=== PATIENT | female | born 1950 | race Caucasian/White ===

== ENCOUNTER 2020-03-14 00:51 | Outpatient (CLI) | payer OTHER, SELFPAY ==
[2020-03-14 18:11] LABS: SARS-CoV-2 RNA PCR Negative
== END 2020-03-14 00:52 | disposition home or self-care (01) ==
LOC: ANHCOVIDDT 00:51
PROVIDERS: PCP Family Medicine; Visit Provider Internal Medicine Gastroenterology
DX: Z01.812 Encounter for preprocedural laboratory examination (principal); Z11.59 Encounter for screening for other viral diseases
CPT/HCPCS: 87635; C9803; U0003

== ENCOUNTER 2020-03-17 01:56 | Day surgery (SDC) | payer OTHER, SELFPAY ==
[2020-03-09 12:30] VITALS: BMI 36.3
[2020-03-17 12:07] VITALS: BP 148/110; PULSE 93; RESP 16; TEMP 37.2; O2SAT 100; BMI 34.1
[2020-03-17] MEDS: LACTATED RINGERS 1,000 ML 150 ML IV CONT (12:22)
--- NOTE | 2020-03-17 12:31 | WPDANESEPPF ---
Anes - Initial Pre Proc Eval Procedure: Operation Date: 03/17/20 13:15 Proposed Procedures p Esophagogastroduodenoscopy & Colonoscopy - Moreno Mike MD Date/Time: 03/17/20 12:31 Surgeon: Moreno Mike MD Pre Op Diagnosis: anemia, reflux Patient Data Age: 69 Gender: F Height: 5 ft Weight: 79.3 kg Last Vital Signs Temp 99.0 F 03/17/20 12:07 Pulse 93 03/17/20 12:07 Resp 16 03/17/20 12:07 BP 148/110 H 03/17/20 12:07 Pulse Ox 100 03/17/20 12:07 Allergies Allergy/AdvReac Type Severity Reaction Status Date / Time famotidine Allergy Unknown Hives Verified 03/17/20 12:05 Home Medications Medication Instructions Recorded Confirmed Type albuterol sulfate 90 mcg/actuation 2 inhalation INHALATION Q4-6H PRN 07/22/19 03/09/20 History breath activated powder inhaler aspirin 81 mg tablet,delayed 81 mg PO DAILY 07/22/19 03/09/20 History release fluticasone propionate 50 1 spray NASAL DAILY 07/22/19 03/09/20 History mcg/actuation nasal spray,suspension rosuvastatin 10 mg tablet 10 mg PO DAILY 07/22/19 03/09/20 History sertraline 100 mg tablet 100 mg PO DAILY 07/22/19 03/09/20 History umeclidinium 62.5 mcg-vilanterol 1 inhalation INHALATION DAILY 07/22/19 03/09/20 History 25 mcg/actuation powdr for inhalation cyanocobalamin (vitamin B-12) 5,000 mcg PO DAILY 01/24/20 03/09/20 History 5,000 mcg capsule pantoprazole 40 mg tablet,delayed 40 mg PO QAM #90 tablet 01/24/20 03/09/20 Rx release ferrous sulfate 325 mg (65 mg 325 mg PO DAILY #90 tablet 01/31/20 03/09/20 Rx iron) tablet peg 3350-electrolytes 236 240 ml PO Q10M #4000 ml 03/05/20 Rx gram-22.74 gram-6.74 gram-5.86 gram solution clopidogrel 75 mg PO DAILY 03/09/20 03/09/20 History Patient hx anesthesia problems: none Family hx anesthesia problems: none FORMERLY [facility] Past Medical History Medical History (Updated 02/10/20 @ 14:05 by Moreno Mike MD) Colon cancer screening COPD (chronic obstructive pulmonary disease) Dysphagia H/O: CVA (cerebrovascular accident) Microcytic anemia Nausea and vomiting in adult Osteoporosis Parkinsons disease Surgical History Surgical History H/O foot surgery History of hysterectomy with oophorectomy History of tonsillectomy Hx of appendectomy Social History Social History Smoking status: Former smoker Tobacco type: cigarettes Second hand tobacco smoke exposure: No Alcohol intake: never Substance use: never Substance use type: does not use 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 Gender identity (if verbalized by the patient): Female Spiritual care concerns: No Agree to blood products: Yes Anes - Eval Final PreProcedure Day of Procedure 03/17/20 12:31 Patient weight: overweight Heart: regular rate and rhythm Lungs: clear to auscultation Airway: Mallampati scale class II Neurological: alert and oriented Last oral intake: >/= 8 hours ASA classification: III Emergent: no Anesthetic plan: proceed Anesthesia type and monitoring: general GIVS and standard monitoring Informed Consent: The patient's anesthetic plan and its attendant risks and benefits were discussed with the patient/family/POA. Questions were solicited and answers provided to the satisfaction of the patient/family/POA.
--- NOTE | 2020-03-17 13:00 | PM.HPGS ---
History of Present Illness History of Present Illness Consent: Risks, benefits, and alternatives have been discussed and questions answered. Patient agrees to proceed with procedure. Chief complaint: anemia, reflux Narrative: Lauryn Sanchez is a 69 year old female here for screening colon and GERD but better with protonix Review of Systems Constitutional: Constitutional: Denies headache(s) and Denies weakness Eyes: Eyes: Denies blurry vision ENT: Reports Normal hearing present, Denies headache(s) and Denies neck pain Cardiovascular: Cardiovascular: Denies chest pain and Denies dyspnea Respiratory: Respiratory: Denies dyspnea Gastrointestinal: Gastrointestinal: Reports no additional gastrointestinal complaints Genitourinary: Genitourinary: Denies dysuria Musculoskeletal: Musculoskeletal: Denies neck pain Integumentary/Breasts: Skin/Breast: Denies dry skin Neurologic: Reports Normal hearing present, Denies headache(s) and Denies weakness Psychiatric: Psychiatric: Denies anxiety Endocrine: Endocrine: Denies change in body appearance Hematologic/Lymphatic: Hematologic/Lymphatic: Denies easy bleeding Allergic/Immunologic: Allergic/Immunologic: Denies urticaria PMFSH Past Medical History Medical History (Updated 02/10/20 @ 14:05 by Moreno Mike MD) Colon cancer screening COPD (chronic obstructive pulmonary disease) Dysphagia H/O: CVA (cerebrovascular accident) Microcytic anemia Nausea and vomiting in adult Osteoporosis Parkinsons disease Surgical History Surgical History H/O foot surgery History of hysterectomy with oophorectomy History of tonsillectomy Hx of appendectomy Social History Social History Smoking status: Former smoker Tobacco type: cigarettes Second hand tobacco smoke exposure: No Alcohol intake: never Substance use: never Substance use type: does not use 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 Gender identity (if verbalized by the patient): Female Spiritual care concerns: No Agree to blood products: Yes Meds Home Medications and Allergies Home Medications Medication Instructions Recorded Confirmed Type albuterol sulfate 90 mcg/actuation 2 inhalation INHALATION Q4-6H PRN 07/22/19 03/09/20 History breath activated powder inhaler aspirin 81 mg tablet,delayed 81 mg PO DAILY 07/22/19 03/09/20 History release fluticasone propionate 50 1 spray NASAL DAILY 07/22/19 03/09/20 History mcg/actuation nasal spray,suspension rosuvastatin 10 mg tablet 10 mg PO DAILY 07/22/19 03/09/20 History sertraline 100 mg tablet 100 mg PO DAILY 07/22/19 03/09/20 History umeclidinium 62.5 mcg-vilanterol 1 inhalation INHALATION DAILY 07/22/19 03/09/20 History 25 mcg/actuation powdr for inhalation cyanocobalamin (vitamin B-12) 5,000 mcg PO DAILY 01/24/20 03/09/20 History 5,000 mcg capsule pantoprazole 40 mg tablet,delayed 40 mg PO QAM #90 tablet 01/24/20 03/09/20 Rx release ferrous sulfate 325 mg (65 mg 325 mg PO DAILY #90 tablet 01/31/20 03/09/20 Rx iron) tablet peg 3350-electrolytes 236 240 ml PO Q10M #4000 ml 03/05/20 Rx gram-22.74 gram-6.74 gram-5.86 gram solution clopidogrel 75 mg PO DAILY 03/09/20 03/09/20 History Allergies Allergy/AdvReac Type Severity Reaction Status Date / Time famotidine Allergy Unknown Hives Verified 03/17/20 12:05 Vital Signs Vital Signs - 24 hr 03/17/20 12:07 Temperature 99.0 F Pulse Rate 93 Respiratory Rate 16 Blood Pressure 148/110 H Pulse Oximetry 100 Exam Const: General: comfortable and no acute distress HENMT: General nose exam: Normal nares present Eyes: General: appearance normal, both eyes and all related structures Neck: Neck: no JVD Resp: Auscultation: clear to auscultation bilaterally Cardio: Rate: regular rate Rhythm: regular rhythm GI
[2020-03-17 13:42] VITALS: BP 109/70; PULSE 60; RESP 16; O2SAT 98
[2020-03-17 13:52] VITALS: BP 134/81; PULSE 65; RESP 18; O2SAT 99
[2020-03-17 14:02] VITALS: BP 152/94; PULSE 67; RESP 19; O2SAT 99
== END 2020-03-17 14:30 | disposition home or self-care (01) ==
PROVIDERS: PCP Family Medicine; Visit Provider Internal Medicine Gastroenterology
PROC: 0DJ08ZZ Inspection of Upper Intestinal Tract, Via Natural or Artificial Opening Endoscopic (ICD-10-PCS; CPT 43235; principal; 2020-03-17 13:15)
DX: Z12.11 Encounter for screening for malignant neoplasm of colon (principal); D12.0 Benign neoplasm of cecum; K57.30 Diverticulosis of large intestine without perforation or abscess without bleeding; K21.0 Gastro-esophageal reflux disease with esophagitis; K22.10 Ulcer of esophagus without bleeding; K44.9 Diaphragmatic hernia without obstruction or gangrene; K31.7 Polyp of stomach and duodenum; D50.9 Iron deficiency anemia, unspecified; R11.0 Nausea; G20 Parkinson's disease; J44.9 Chronic obstructive pulmonary disease, unspecified; M81.0 Age-related osteoporosis without current pathological fracture; Z86.73 Personal history of transient ischemic attack (TIA), and cerebral infarction without residual deficits; Z79.02 Long term (current) use of antithrombotics/antiplatelets; Z79.82 Long term (current) use of aspirin; Z87.891 Personal history of nicotine dependence
CPT/HCPCS: 45380; 43239; 43251; 88305; J2704; J7120

== ENCOUNTER 2020-04-10 11:27 | Observation (INO) | payer OTHER, SELFPAY ==
[2020-04-10] VITALS (9 sets, daily range): BP systolic 137–183; BP diastolic 84–133; PULSE 85–97; RESP 16–24; TEMP 36.7–37.1; O2SAT 97–100; BMI 38.9
--- NOTE | ~2020-04-10 | XR_ITS ---
EXAMINATION: XR chest 1V portable DATE: 04/10/2020 12:17 INDICATION: Slurred speech. TECHNIQUE: A single frontal view of the chest was obtained. COMPARISON: Chest 2 views 02/04/2010 FINDINGS: There is mild atelectasis in left lower lung zone. No pleural effusion or pneumothorax. The heart size is normal. IMPRESSION: 1. Mild atelectasis in left lower lung zone. Reviewed, dictated and finalized at location A.
--- NOTE | ~2020-04-10 | CT_ITS ---
EXAMINATION: CT brain wo con DATE: 04/10/2020 11:43 INDICATION: Slurred speech. Neurologic symptoms. TECHNIQUE: Computed tomography (CT) of the head was performed without intravenous contrast. Sagittal and coronal reconstructions were performed. The mA was adjusted according to patient size. Iterative reconstruction technique was employed. The dose-length product was 605.33 mGy-cm. COMPARISON: head CT dated 08/25/2015 and brain MR dated 01/03/2019 FINDINGS: No acute intracranial hemorrhage, acute infarction or abnormal extra axial fluid collection. There is moderate scattered white matter hypoattenuation consistent with chronic small vessel ischemic diseas e. Ventricles are normal and symmetric. No mass/mass effect. Intracranial calcified cerebral atherosc lerosis is noted. The orbits, paranasal sinuses and mastoid air cells are normal. IMPRESSION: 1. No evident acute intracranial process. Dr. Parham discussed these findings with Dr. Strong at 7 :47 AM. 2. Moderate scattered white matter hypoattenuation consistent with chronic small vessel ischemic dise ase. Reviewed, dictated and finalized at location B. IMPRESSION: 1. No evident acute intracranial process. Dr. Parham discussed these findings with Dr. Strong at 7:47 AM. 2. Moderate scattered white matter hypoattenuation consistent with chronic smal l vessel ischemic disease.
--- NOTE | ~2020-04-10 | MR_ITS ---
EXAMINATION: MR brain/brain stem wo/w con DATE: 04/10/2020 18:05 INDICATION: Transient ischemic attack, slurred speech TECHNIQUE: Magnetic resonance imaging (MRI) of the brain and brainstem was performed without and with intravenous contrast. Sequences included sagittal and axial T1-weighted SE, axial diffusion-weighted FS EPI ASSET, axial T2*-weighted GRE, axial T2-weighted FLAIR Propeller, and axial T2-weighted Prope ller. Postcontrast axial and coronal T1-weighted SE was obtained. Apparent diffusion coefficient (ADC ) maps were created. COMPARISON: 01/03/2019 CONTRAST: Multihance, 16 cc FINDINGS: There are no areas of restricted diffusion to suggest acute infarction. There is no acute h emorrhage seen on the T2*, a hemosiderin sensitive sequence. The ventricles are normal in size. There are no extra-axial collections. There are scattered areas of nonspecific increased T2-weighted signa l intensity in the cerebral white matter. Flow voids are seen in the cerebral arteries on the T2-weig hted sequences consistent with their expected patency. Visualized orbits and soft tissues are unremar kable. There are no areas of abnormal enhancement on the post contrast images. IMPRESSION: 1. No acute intracranial abnormality. 2. Age related findings. Reviewed, dictated and finalized at location A.
--- NOTE | ~2020-04-10 | US_ITS ---
EXAMINATION: US carotid duplex BI DATE: 04/12/2020 09:13 INDICATION: Possible left internal carotid artery dissection TECHNIQUE: Grayscale, color Doppler, and pulsed Doppler images of the cervical carotid arteries were obtained. The degree of vessel stenosis is placed in one of the following categories: normal, <50%, 5 0-69%, >=70% but less than near-occlusion, near-occlusion, or total occlusion. Note that percent sten osis relative to normal distal artery lumen diameter is indirectly measured from velocity measurement s as described by Riley, et al. Radiology 2003; [id number]:[id number]. COMPARISON: None. FINDINGS: RIGHT: The right common carotid artery (CCA) peak systolic velocity (PSV) is 44 cm/s. The right internal car otid artery (ICA) PSV is 60 cm/s. The right ICA end-diastolic velocity (EDV) is 21 cm/s. The right IC A/CCA PSV ratio is 1.4. Grayscale and color Doppler images yield an estimate of minimal less than 50% diameter reduction from plaque in the ICA. The external carotid artery (ECA) PSV is 48 cm/s. There i s antegrade flow in the right vertebral artery. LEFT: There is tortuosity of the distal internal carotid artery on the left but no evidence of intima l flap or dissection The left CCA PSV is 51 cm/s. The left ICA PSV is 68 cm/s. The left ICA EDV is 20 cm/s. The left ICA/C CA PSV ratio is 1.3. Grayscale and color Doppler images yield an estimate of 0% diameter reduction fr om plaque in the ICA. The ECA PSV is 51 cm/s. There is antegrade flow in the left vertebral artery. IMPRESSION: 1. Minimal less than 50% stenosis in the right internal carotid artery. 2. No stenosis in the left internal carotid artery; tortuosity, no evidence of dissection. Reviewed, dictated and finalized at Location A. Reviewed, dictated and finalized at location A.
--- NOTE | ~2020-04-10 | CT_ITS ---
EXAMINATION: CTA BRAIN/CAROTID DATE: 04/10/2020 15:57 INDICATION: Transient ischemic episode. Slurred speech. TECHNIQUE: Computed tomographic angiography (CTA) of the head and neck was performed with 100 mL Omni paque-350 intravenous contrast. Multiplanar reconstructions and maximum intensity projection 3D-recon structions of the carotid arteries and of the intracranial arteries were created by the technologist on a separate workstation. Precontrast CT of the head was also obtained. Automated exposure control and iterative reconstruction technique were employed.The dose-length product was 846.61 mGy-cm. COMPARISON: None. FINDINGS: Carotid arteries: There is 0% stenosis of the right and left carotid bulbs relative to normal distal artery lumen diame ter (NASCET criteria). There is tortuosity to the more cephalad bilateral internal carotid arteries, more prominent on the left. Distal to the region of tortuosity on the left there is a small dissectio n flap in the more cephalad internal carotid artery. The artery at this location appears mildly dilat ed with irregularly varying caliber. There is also subtle irregular attenuating appearance to the lum en of the horizontally oriented segments of the more proximal left and right internal carotid arterie s. Appearance raises suspicion for fibromuscular dysplasia..Negligible atherosclerotic plaque at the normal caliber aortic arch. The visualized origins of the great vessels are normal. Intracranial arteries There is no hemodynamically significant stenosis in the vertebral, basilar and internal carotid arter ies. Vertebral arteries are codominant. There are no aneurysms identified. Both A1 and P1 segments a re patent. There is also patent anterior communicating artery. Cerebral arterial arborization appears symmetric. IMPRESSION: 1. Mild atherosclerotic plaque with 0% stenosis of the right carotid bulb relative to normal distal a rtery lumen diameter (NASCET criteria). 2. No atherosclerotic plaque or stenosis of the left carotid bulb. 3. 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 4. Normal cerebral CT angiogram. Reviewed, dictated and finalized at location B. IMPRESSION: 1. Mild atherosclerotic plaque with 0% stenosis of the right carotid bulb relat santiago to normal distal artery lumen diameter (NASCET criteria). 2. No atherosclerotic plaque or stenosis of the left carotid bulb. 3. 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 4. Normal cerebral CT angiogram.
--- NOTE | 2020-04-10 11:32 | ECG_ITS ---
Measurements Intervals [place] Rate: 95 P: 37 OR: 184 QRS: -11 QRSD: 86 T: 30 QT: 313 QTc: 395 Interpretive Statements SINUS RHYTHM LEFT VENTRICULAR HYPERTROPHY WITH ST-T CHANGE POOR R WAVE PROGRESSION, ANTERIOR LEADS BORDERLINE T WAVE ABNORMALITY- ANTERIOR LEADS BASELINE ARTIFACT- I, II, AVR BORDERLINE ECG Electronically Signed On 04-10-2020 11:55:16 CDT by Lonnie Urbina D.O.
[2020-04-10 12:10] LABS: Basophils Absolute Auto 0.1 K/mm3 (0.0-0.1); Basophils Percent Auto 1.2 % (0.2-1.2); Eosinophils Absolute Auto 0.1 K/mm3 (0-0.3); Eosinophils Percent Auto 1.6 % (0-4.4); Hematocrit 30.1 % (37.0-47.0); Hemoglobin 8.6 g/dL (12.0-15.0); Immature Granulocyte Absolute 0.02 K/mm3 (0.00-0.031); Immature Granulocyte Percent A 0.3 % (0-0.5); Lymphocytes Absolute Auto 1.57 K/mm3 (0.9-3.2); Lymphocytes Percent Auto 27.4 % (18.3-44.2); Mean Corpuscular HGB Conc 28.6 g/dl (32-36); Mean Corpuscular Hemoglobin 18.5 pg (26-34); Mean Corpuscular Volume 64.6 fl (80-100); Mean Platelet Volume 9.5 fl (7.4-10.4); Monocytes Absolute Auto 0.5 K/mm3 (0.1-0.6); Monocytes Percent Auto 8.6 % (2.6-8.5); Neutrophils Absolute Auto 3.5 K/mm3 (1.3-6.7); Neutrophils Percent Auto 60.9 % (45.5-73.1); Platelet Count Result 421 k/mm3 (150-375); Red Blood Count 4.66 M/mm3 (4.2-5.4); Red Cell Distribution Width 18.5 % (11.5-14.5); White Blood Count 5.7 K/mm3 (4.5-10.0)
[2020-04-10 12:16] LABS: INR 1.1; Prothrombin Time 14.2 Seconds (11.1-14.7)
[2020-04-10 12:17] LABS: Partial Thromboplastin Time 29.3 SECONDS (22.3-36.8)
[2020-04-10 12:19] LABS: Anion Gap 8 mmol/L (8-16); Blood Urea Nitrogen 14 mg/dL (7-17); Calcium 9.8 mg/dL (8.4-10.2); Carbon Dioxide 28 mmol/L (22-30); Chloride 101 mmol/L (98-107); Estimated CRCL calculation 64 ml/min; Estimated Glomerular Filt Rate > 60; Glucose 136 mg/dL (65-105); Potassium 3.5 mmol/L (3.4-5.0); Sodium 137 mmol/L (137-145)
[2020-04-10 12:31] LABS: Troponin I < 0.012 ng/mL (0.000-0.034)
[2020-04-10 12:36] LABS: Hypochromasia 2+ (NORMAL); Ovalocytes 2+ (NORMAL)
[2020-04-10 12:37] LABS: Platelet Estimate Adequate (Adequate)
[2020-04-10 13:06] LABS: Add Urine Microscopic? YES; Appearance Urine Clear (Clear); Bacteria Urine Trace /hpf; Bilirubin Urine Negative (Negative); Blood Urine Negative (Negative); Color Urine Yellow (Yellow); Glucose Urine UA Negative (Negative); Ketones Urine Negative (Negative); Leukocyte Esterase Ur 1+ LEU/UL (Negative); Mucus Urine Moderate /lpf; Nitrate Urine Negative (Negative); Protein Urine Negative (Negative); RBC Urine 0-2 /hpf (0-2); Specific Grav Ur 1.029 (1.001-1.035); Squamous Epithelial Cell Urine Occasional /hpf (Few); Urobilinogen Urine Negative mg/dL (<2.0); WBC Urine 0-3 /hpf
--- NOTE | 2020-04-10 13:09 | ED.NEUROSD ---
HPI - Neuro Symptoms/Deficit General Chief Complaint: Neuro Symptoms/Deficit Stated Complaint: neuro symptoms Time Seen by Provider: 04/10/20 12:14 Source: patient and family Mode of arrival: ambulatory History of Present Illness HPI Narrative: 69 years old white female presents with sudden onset of dizziness, left frontal headache, unable to talk, unable to walk straight started at 11 AM, resolved within 25 minutes. Currently patient is asymptomatic. History of CVA 10 years ago with residual left trouble every now and then, history of TIAs last one was 2 years ago, currently patient on Plavix, cannot take aspirin because of recent history of peptic ulcer disease in the last 4 weeks. Patient also have history of hyperlipidemia and COPD. Related Data Home Medications Medication Instructions Recorded Confirmed albuterol sulfate 90 mcg/actuation 2 inhalation INHALATION Q4-6H PRN 07/22/19 03/09/20 breath activated powder inhaler aspirin 81 mg tablet,delayed 81 mg PO DAILY 07/22/19 03/09/20 release fluticasone propionate 50 1 spray NASAL DAILY 07/22/19 03/09/20 mcg/actuation nasal spray,suspension rosuvastatin 10 mg tablet 10 mg PO DAILY 07/22/19 03/09/20 sertraline 100 mg tablet 100 mg PO DAILY 07/22/19 03/09/20 umeclidinium 62.5 mcg-vilanterol 1 inhalation INHALATION DAILY 07/22/19 03/09/20 25 mcg/actuation powdr for inhalation cyanocobalamin (vitamin B-12) 5,000 mcg PO DAILY 01/24/20 03/09/20 5,000 mcg capsule clopidogrel 75 mg PO DAILY 03/09/20 03/09/20 Allergies Allergy/AdvReac Type Severity Reaction Status Date / Time famotidine Allergy Unknown Hives Verified 04/10/20 11:48 Review of Systems Review of Systems: Narrative: CONSTITUTIONAL: Denies fever, chills, or sweats. EYES: Denies visual changes, redness, or discharge. ENT: Denies rhinorrhea, congestion, sore throat, or otalgia. CARDIOVASCULAR: Denies chest pain, palpitations, or edema. RESPIRATORY: Denies cough or dyspnea. GASTROINTESTINAL: Denies abdominal pain, nausea, vomiting, or diarrhea. GENITOURINARY: Denies dysuria or hematuria. SKIN: Denies rash or itching. MUSCULOSKELETAL: Denies back pain, joint pain, or myalgia. NEUROLOGIC: Denies headache, numbness, or weakness. PSYCHIATRIC: Denies anxiety or depression. FORMERLY [facility], [facility] Past Medical History Medical History Colon cancer screening COPD (chronic obstructive pulmonary disease) Dysphagia H/O: CVA (cerebrovascular accident) Microcytic anemia Nausea and vomiting in adult Osteoporosis Parkinsons disease Surgical History Surgical History H/O foot surgery History of hysterectomy with oophorectomy History of tonsillectomy Hx of appendectomy Family History Family History Mother Diabetes mellitus Hypertension Family history of cardiovascular disease Father Diabetes mellitus Family history of Parkinson's disease Family history of Alzheimer's disease Grandparent Family history of arthritis Social History Social History Smoking status: Former smoker Tobacco type: cigarettes Second hand tobacco smoke exposure: No Alcohol intake: never Substance use: never Substance use type: does not use 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
[2020-04-10] MEDS: LABETALOL HCL INJ 100 MG/20 ML VIAL 10 MG IV PUSH (15:05)
--- NOTE | 2020-04-10 18:20 | ADMGEN ---
This patient, Lauryn Sanchez, was admitted to 2 Medical Room 257-01. Patient/family oriented to hospital policies and general routines including ID bracelet, bed and alarms, visiting hours, pain management, procedures, bathroom and other care routines, personal items, smoking policy, room service/diet, and visiting hours. Valuables list has been completed. Information on how to activate the Rapid Response Team has been discussed. Patient/Family are encouraged to report perceived risks to care and to ask questions if they do not understand what they are told or what they should do.
--- NOTE | 2020-04-10 22:00 | PM.IMHP ---
H&P: HPI History of Present Illness Date/Time: 04/10/20 22:00 Chief complaint: Neuro symptoms. Narrative: Lauryn Sanchez is a very pleasant 69-year-old female with history of stroke without residual deficit, hypertension no longer medication, hyperlipidemia, GERD, and COPD who presented to the emergency department earlier today from home for evaluation of neuro symptoms. She was in her usual state of health when she woke this morning, went to visit family members, and came home. She sat down her chair to watch television and she assumes that she nodded off as she woke up a couple of hours later. She got up to use the restroom and her balance was off, and she had a difficult time walking in a straight line almost as though I was drunk. At that time she also noticed that since she was unable to speak the words that she was trying to say, it sounds as though she had nonsensical speech. She also had some mild left-sided facial numbness. By the time she arrived to the emergency department she was able to speak without issues but still had some tingling in the left side of her face. All symptoms completely resolved within about 2 hours of onset, and have not returned. With further questioning, she was recently taken off of her baby aspirin due to iron deficiency anemia, but she continues to take Plavix. More recently she had upper and lower endoscopy per Dr. Mike on March 26, 2020 for evaluation of GERD symptoms, nausea, and iron deficiency anemia. She had gastric and colon polyps which were removed and she was also noted to have an esophageal ulcer without evidence of bleeding, hiatal hernia, and diverticulosis. She was started on a PPI and sucralfate, and was told she could resume taking her Plavix 3 days after her endoscopy. at the time my evaluation she has no complaints and specifically denies acute auditory and visual changes, vertigo, focal weakness, paresthesias, dysarthria, and dysphagia (she occasionally has pill dysphagia which is longstanding). She has not had chest pain, palpitations, and has no history of atrial fibrillation. Review of Systems Review of Systems: Narrative: Twelve systems were reviewed with pertinent positives and negatives as per HPI. No fever, chills, or sweats. No recent cold or flu symptoms. No exposure to those positive for COVID-19. No recent travel. No cough or shortness of breath. She has been having problems with her feet, and needs to have reconstruction of both feet, as apparently they causes her some issues while ambulating, however these are much different than the vertigo that she was experiencing earlier today. Except as documented, all other systems were reviewed and are negative. [facility] Past Medical History Medical History (Updated 04/10/20 @ 23:38 by Lucy Cortes PA-C) Cerebrovascular accident Initially with left side weakness, now without any significant deficit. Chronic obstructive pulmonary disease Colon polyps Diverticulosis Esophageal ulcer without bleeding (~03/26/20) Gastroesophageal reflux disease Hiatal hernia Hyperlipidemia Hypertension No longer on medication. Iron deficiency anemia Osteoporosis Surgical History Surgical History (Updated 04/10/20 @ 23:33 by Lucy Cortes PA-C) History of appendectomy History of hysterectomy with oophorectomy History of tonsillectomy Status post right foot surgery (~02/2017) Bilateral bunionectomy and arthroplasty of several digits. Family History Family History Mother Diabetes mellitus Hypertension Family history of cardiovascular disease Father Diabetes mellitus Family history of Parkinson's disease Family history of Alzheimer's disease Grandparent Family history of arthritis Social History Social History (Updated 04/10/20 @ 23:34 by Lucy Cortes PA-C) Social History: Surrogate decision maker: Sheila Goetz, daughter. Code status:
[2020-04-11] VITALS (9 sets, daily range): BP systolic 124–140; BP diastolic 63–77; PULSE 67–91; RESP 16–18; TEMP 36.6–36.8; O2SAT 96–99
--- NOTE | 2020-04-11 | ECHO_ITS ---
Patient Info Name: Lauryn Sanchez Age: 69 years : 1950 Gender: Female Ht: 60 in Wt: 199 lbs BSA: 2.00 m2 HR: 73 bpm BP: 140 / 77 mmHg Technical Quality: Good Exam Date: 04/11/2020 11:08 AM Exam Location: [facility] Pulmonary Patient Status: Inpatient Admit Date: 04/10/2020 Staff Ordering Physician: Darshana Hitchcock PA-C [employer] Processor: Sabine Pink RDCS Attending Provider: Darshana Hitchcock PA-C Referring Physician: Naldo WHYTE; Exam Type: CA echo doppler w bubble study Study Info Complete two-dimensional, color flow and Doppler transthoracic echocardiogram is performed with agitated saline. Contrast/Agitated Saline Contrast/Ag. Saline: Agitated Saline Amount: 7.00 ml Summary 1. Left ventricular chamber dimension is normal. 2. Left ventricular systolic function is normal, estimated at 65-70%. 3. There is mildly increased left ventricular wall thickness. 4. The left ventricular diastolic function is grade I diastolic dysfunction. 5. E/e' 6 is not elevated. 6. Left atrial chamber dimension is mildly enlarged. 7. There is trace aortic valve regurgitation. 8. The mitral valve has mildly calcified annulus. 9. There is trace mitral valve regurgitation. 10. There is trace tricuspid valve regurgitation. Left Ventricle E/e' 6 is not elevated. Left ventricular chamber dimension is normal. Left ventricular systolic function is normal, estimated at 65-70%. There is mildly increased left ventricular wall thickness. The left ventricular diastolic function is grade I diastolic dysfunction. Right Ventricle Right ventricular chamber dimension is normal. Right ventricular systolic function is normal. Left Atria Left atrial chamber dimension is mildly enlarged. Right Atria Agitated saline injection opacified right sided cardiac chambers without shunt to left sided cardiac chambers with and without valsalva maneuver. Right atrial chamber dimension is normal. Atrial Septum Intact interatrial septum visualized by agitated saline imaging. Aortic Valve The aortic valve is trileaflet. There is no aortic valve stenosis. There is trace aortic valve regurgitation. Pulmonic Valve There is no pulmonic regurgitation. Mitral Valve The mitral valve has mildly calcified annulus. There is no mitral valve stenosis. There is trace mitral valve regurgitation. Tricuspid Valve There is trace tricuspid valve regurgitation. RVSP is not calculated due to an inadequate TR jet. Pericardium/Pleural There is no pericardial effusion. Inferior Vena Cava Normal inferior vena cava with >50% collapse upon inspiration consistent with normal right atrial pressure, 5 mmHg. Aorta The aortic root size at the sinus of Valsalva is normal. Left Ventricular Outflow Tract Name Value Normal LVOT 2D LVOT Diameter 1.9 cm LVOT Doppler LVOT Peak Gradient 3 mmHg LVOT Mean Gradient 1 mmHg LVOT VTI 19 cm LVOT VTI/AV VTI Ratio 0.8 LVOT Stroke Vo
[2020-04-11] MEDS: SERTRALINE HCL 50 MG TABLET 100 MG PO ×2 (01:02→19:47)
[2020-04-11 05:39] LABS: Hematocrit 26.8 % (37.0-47.0); Hemoglobin 7.9 g/dL (12.0-15.0); Mean Corpuscular HGB Conc 29.5 g/dl (32-36); Mean Corpuscular Hemoglobin 18.6 pg (26-34); Mean Corpuscular Volume 63.1 fl (80-100); Mean Platelet Volume 9.6 fl (7.4-10.4); Platelet Count Result 373 k/mm3 (150-375); Red Blood Count 4.25 M/mm3 (4.2-5.4); White Blood Count 5.1 K/mm3 (4.5-10.0)
[2020-04-11] MEDS: SUCRALFATE 1 GM TABLET PO ×2 (05:45→11:49)
[2020-04-11 06:11] LABS: Alanine Aminotransferase 16 U/L (4-35); Albumin Level 3.8 g/dL (3.5-5.1); Alkaline Phosphatase 62 U/L (38-126); Anion Gap 7 mmol/L (8-16); Aspartate Amino Transferase 23 U/L (14-36); Bilirubin,Total 0.7 mg/dL (0.2-1.3); Blood Urea Nitrogen 12 mg/dL (7-17); Carbon Dioxide 28 mmol/L (22-30); Chloride 101 mmol/L (98-107); Cholesterol 183 mg/dL (0-200); Estimated CRCL calculation 60 ml/min; Estimated Glomerular Filt Rate > 60; Glucose 102 mg/dL (65-105); HDL Direct 37 mg/dL; Magnesium 1.6 mg/dL (1.6-2.3); Potassium 3.7 mmol/L (3.4-5.0); Sodium 136 mmol/L (137-145); Triglycerides 94 mg/dL (<150)
[2020-04-11 06:22] LABS: LDL Cholesterol Direct 126 mg/dL
[2020-04-11 08:08] LABS: Transferrin 340 mg/dL (206-381)
[2020-04-11] MEDS: PANTOPRAZOLE 40 MG TABLET PO ×2 (08:21→19:48)
[2020-04-11] MEDS: ROSUVASTATIN 10 MG TABLET PO (08:21)
[2020-04-11] MEDS: FLUTICASONE PROPIONATE 0.05% NA SPR 16 GM BTL (*BKC) 1 SPRAY NASAL (08:21)
[2020-04-11 08:32] LABS: Iron 21 ug/dL (37-170)
[2020-04-11 08:42] LABS: Percent Iron Saturation 4 % (20-50)
[2020-04-11 09:08] LABS: Ferritin 6.69 ng/mL (11.1-264); Folic Acid 7.5 ng/mL (2.76->20)
--- NOTE | 2020-04-11 15:46 | PM.IMPN ---
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 Neurology wants further evaluation with carotid duplex ultrasound Will continue on aspirin and Plavix and he see what ultrasound shows. At this time she is otherwise feeling well without any issues or concerns. Continue monitoring. (2) Neurological symptoms: Code(s): R29.90 - Unspecified symptoms and signs involving the nervous system Status: Acute Assessment and Plan: Patient's symptoms were consistent with a TIA. Including vertigo, dysarthria, and left facial paresthesias and symptoms resolved within 2 hours without any residual defects. Brain MRI was negative for any acute abnormality or stroke. CTA of the head and neck showed Mild atherosclerotic plaque with 0% stenosis of the right carotid bulb relative to normal distal artery lumen diameter (NASCET criteria). No atherosclerotic plaque or stenosis of the left carotid bulb. Irregular contour with undulating diameter of the left and right internal carotid arteries suspicious for probable lesser dysplasia with short dissection flap along the left internal carotid artery. I talked with the neurologist Dr. Santana who recommends completing a carotid duplex of her carotid arteries to further evaluate for suspicious short dissection flap of the left internal carotid artery. At this time will restart patient's aspirin and continue Plavix. Telemetry shows no acute arrhythmia as to cause of TIA Echocardiogram showed normal EF, diastolic grade 1, and normal bubble study without any septal defects. LDL cholesterol was elevated 126 I will increase her received statin to 20 mg at night and recheck fasting lipid panel in 6 weeks. Neurology would like to patient restarted on her aspirin and continued Plavix due to her TIA and stroke history. Patient will be evaluated overnight for further evaluation on left internal carotid artery. Continue monitoring and neurologic symptoms. (3) Iron deficiency anemia: Code(s): D50.9 - Iron deficiency anemia, unspecified Status: Acute Assessment and Plan: The patient used to be on iron supplementation but since her EGD she has been on sucralfate and GI recommended her holding iron until sucralfate was completed. Her H&H 02/23/2019 was 11 and 36. On arrival the patient's H&H was 8.6 and 30. I talked to Dr. Dunaway who recently performed an EGD and colonoscopy. I informed him of her iron deficiency anemia with a% saturation of 4. He recommends discontinuing sucralfate and restarting her iron. Will give IV Venofer 500 mg x2. Then restart her ferrous sulfate b.i.d.. Dr. Dunaway also states she can be restarted on her aspirin 81 mg due to her TIA/stroke history Will recheck H&H now and in the morning to make sure it is stable and she does not need a blood transfusion. No acute signs of bleeding at this time. (4) Hypertension: Code(s): I10 - Essential (primary) hypertension Status: Acute Assessment and Plan: No longer on antihypertensives because it got better. Blood pressure was as high as 183/131 in the ED, but has improved to 140-120 systolic today. At this time we will allow permissive hypertension in case she has had an infarct. Hydralazine p.r.n. for significant hypertension. (5) Hyperlipidemia: Code(s): E78.5 - Hyperlipidemia, unspecified Status: Acute Assessment an
[2020-04-11] MEDS: IRON SUCROSE COMPLEX 500 MG in SODIUM CHLORIDE 0.9% IV 250 ML 78.6 MG IVPB (15:59)
[2020-04-11 16:14] LABS: Hematocrit 28.6 % (37.0-47.0); Hemoglobin 8.1 g/dL (12.0-15.0)
[2020-04-11] MEDS: CLOPIDOGREL BISULFATE 75 MG TABLET PO (16:54)
--- NOTE | 2020-04-11 17:10 | WPDNEURCNPN ---
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 - Dissection of carotid artery Status: Acute (2) Gastroesophageal reflux disease: Code(s): K21.9 - Gastro-esophageal reflux disease without esophagitis Status: Acute (3) Hyperlipidemia: Code(s): E78.5 - Hyperlipidemia, unspecified Status: Acute (4) Hypertension: Code(s): I10 - Essential (primary) hypertension Status: Acute (5) Iron deficiency anemia: Code(s): D50.9 - Iron deficiency anemia, unspecified Status: Acute (6) Brain TIA: Code(s): G45.9 - Transient cerebral ischemic attack, unspecified Status: Acute Additional Plan case discussed with the attending nurse practitioner which she go ahead and proceed with carotid Doppler study to further clarify the carotid dissection continue with the dual anti-platelet therapy and monitor here the echocardiogram with bubble study is negative worth mentioning Consult date: 04/11/20 Time Seen: 16:30 HPI: Lauryn Sanchez is a 69 year old female this is a 69-year-old woman with previous history of having had stroke the details of which she does not really recall with a negative MRI of the brain here however on the CTA of the brain of the carotid the question is raised about the small segment dissection of the internal carotid on the left side which will could be consistent with the patient's initial symptoms of couple of hours of trouble with the speaking and resolving quickly and asymptomatic now patient was on aspirin and Plavix but the aspirin was held because of esophageal ulcer I have told the attending nurse practitioners to go ahead started on aspirin and increase the Protonix and also order the carotid Doppler study to see how much dissection where able to discern I am reluctant to start her on any anticoagulation at this time however will see with the carotid Doppler shows and what she does in the next day or so Review of Systems Review of Systems: All systems reviewed & are unremarkable except as noted in HPI and below PMFSH Past Medical History Medical History Cerebrovascular accident Initially with left side weakness, now without any significant deficit. Chronic obstructive pulmonary disease Colon polyps Diverticulosis Esophageal ulcer without bleeding (~03/26/20) Gastroesophageal reflux disease Hiatal hernia Hyperlipidemia Hypertension No longer on medication. Iron deficiency anemia Osteoporosis Surgical History Surgical History History of appendectomy History of hysterectomy with oophorectomy History of tonsillectomy Status post right foot surgery (~02/2017) Bilateral bunionectomy and arthroplasty of several digits. Family History Family History Mother Diabetes mellitus Hypertension Family history of cardiovascular disease Father Diabetes mellitus Family history of Parkinson's disease Family history of Alzheimer's disease Grandparent Family history of arthritis Social History Social History Social History: Surrogate decision maker: Sheila Goetz, daughter. Code status: Full code. Smoking packs per day: 3 Smoking cigarettes per day: 60.0 Years smoked: 40 Smoking pack-years: 120.00 Smoking status: Former smoker Tobacco type: cigarettes Second hand tobacco smoke exposure: No Alcohol intake: never Substance use: never Substance use type: does not use Additional living arrangements comments: Lives with her 3 cats in [place]. 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 Gender identity (if verbalized by the patient): Female Spiritual care concerns: No Agree to blood products: Yes Meds Home Medications and Allergies Home Medications
[2020-04-11] MEDS: ROSUVASTATIN 10 MG TABLET 20 MG PO (19:47)
[2020-04-12] VITALS: PULSE 67
[2020-04-12 02:00] VITALS: PULSE 68
[2020-04-12] MEDS: IRON SUCROSE COMPLEX 500 MG in SODIUM CHLORIDE 0.9% IV 250 ML 78.6 MG IVPB (05:11)
[2020-04-12 05:41] LABS: Hematocrit 28.3 % (37.0-47.0); Hemoglobin 8.3 g/dL (12.0-15.0); Mean Corpuscular HGB Conc 29.3 g/dl (32-36); Mean Corpuscular Hemoglobin 18.7 pg (26-34); Mean Corpuscular Volume 63.6 fl (80-100); Mean Platelet Volume 9.7 fl (7.4-10.4); Platelet Count Result 405 k/mm3 (150-375); Red Blood Count 4.45 M/mm3 (4.2-5.4); Red Cell Distribution Width 17.9 % (11.5-14.5); White Blood Count 7.8 K/mm3 (4.5-10.0)
[2020-04-12 05:49] LABS: Anion Gap 7 mmol/L (8-16); Blood Urea Nitrogen 13 mg/dL (7-17); Calcium 9.1 mg/dL (8.4-10.2); Carbon Dioxide 28 mmol/L (22-30); Chloride 101 mmol/L (98-107); Estimated CRCL calculation 67 ml/min; Estimated Glomerular Filt Rate > 60; Glucose 106 mg/dL (65-105); Potassium 3.9 mmol/L (3.4-5.0); Sodium 136 mmol/L (137-145)
[2020-04-12 06:00] VITALS: BP 150/72; PULSE 72; RESP 16; TEMP 36.6; O2SAT 98
[2020-04-12 08:00] VITALS: PULSE 77
[2020-04-12] MEDS: ASPIRIN 81 MG ENTERIC TABLET PO (09:26)
[2020-04-12] MEDS: FLUTICASONE PROPIONATE 0.05% NA SPR 16 GM BTL (*BKC) 1 SPRAY NASAL (09:26)
[2020-04-12] MEDS: lisinopriL 5 MG TABLET PO (09:26)
[2020-04-12] MEDS: PANTOPRAZOLE 40 MG TABLET PO (09:26)
[2020-04-12] MEDS: CYANOCOBALAMIN INJ 1,000 MCG/ML VIAL 1000 MCG IM (09:26)
[2020-04-12 12:00] VITALS: PULSE 86
--- NOTE | 2020-04-12 13:41 | PM.DS ---
DS: Admitting Diagnosis Admitting Diagnosis Admitting Diagnosis: Neuro symptoms. DS: Discharge Diagnosis Discharge Diagnosis (1) Carotid artery dissection: Code(s): I77.71 - Dissection of carotid artery Status: Acute Assessment and Plan: CTA of the head and neck showed Irregular contour with undulating diameter of the left and right internal carotid arteries suspicious for probable lesser dysplasia with short dissection flap along the left internal carotid artery. Carotid duplex ultrasound showed * I called [facility] in talk to their neurologist insulation cutter and former and went over her history and imaging results. He then discussed it with their on-call stroke attending and inform me that normally patient with a carotid artery dissection just needs anti-platelet therapy. There is no evidence that they would benefit from anticoagulation or stenting. This is something that can heal on its own. They also looked at the imaging and do not believe she has fibromuscular dysplasia. He recommends continuing anti-platelet and better blood pressure and cholesterol control. He states this is not something that needs routine imaging for follow-up. She just needs to follow-up with neurology as an outpatient for further evaluation of the frequency of her TIAs. Will continue on aspirin and Plavix upon discharge per Neurology due to her history of TIAs At this time she is otherwise feeling well without any issues or concerns. (2) Neurological symptoms: Code(s): R29.90 - Unspecified symptoms and signs involving the nervous system Status: Acute Assessment and Plan: Patient's symptoms were consistent with a TIA. Including vertigo, dysarthria, and left facial paresthesias and symptoms resolved within 2 hours without any residual defects. Telemetry shows no acute arrhythmia as to cause of TIA Echocardiogram showed normal EF, diastolic grade 1, and normal bubble study without any septal defects. LDL cholesterol was elevated 126 I will increase her received statin to 20 mg at night and recheck fasting lipid panel in 6 weeks. Brain MRI was negative for any acute abnormality or stroke. CTA of the head and neck showed Mild atherosclerotic plaque with 0% stenosis of the right carotid bulb relative to normal distal artery lumen diameter (NASCET criteria). No atherosclerotic plaque or stenosis of the left carotid bulb. Irregular contour with undulating diameter of the left and right internal carotid arteries suspicious for probable lesser dysplasia with short dissection flap along the left internal carotid artery. I will order an outpatient 30 day event monitor for further evaluation and rule out of atrial fibrillation or atrial flutter I talked with the neurologist Dr. Santana who recommends continuing aspirin and Plavix due to her history of TIAs in the past. Dr. Santana would like her to follow-up with him in about 2 months for further evaluation. (3) Iron deficiency anemia: Code(s): D50.9 - Iron deficiency anemia, unspecified Status: Acute Assessment and Plan: The patient used to be on iron supplementation but since her EGD she has been on sucralfate and GI recommended her holding iron until sucralfate was completed. Her H&H 02/23/2019 was 11 and 36. On arrival the patient's H&H was 8.6 and 30. I talked to Dr. Dunaway who recently performed an EGD and colonoscopy. I informed him of her iron deficiency anemia with % saturation of 4. He recommends discontinuing sucralfate and restarting her iron. Will give IV Venofer 500 mg x2. Then restart her ferrous sulfate b.i.d. upon discharge. Dr. Dunaway also states she can be restarted on her aspirin 81 mg due to her TIA/stroke history. Patient understands and agrees with the plan all questions answered. (4) Hype
[2020-04-12 13:57] VITALS: BP 125/75; PULSE 73; RESP 16; TEMP 36.9; O2SAT 97
== END 2020-04-12 16:57 | disposition home or self-care (01) ==
LOC: ANHED 15:28 → ANH2MED 16:27
PROVIDERS: Emergency Medicine; Physician Assistant; Admitting Provider Family Medicine; Emergency Provider Emergency Medicine; PCP Family Medicine; Visit Provider Internal Medicine
DX: I77.71 Dissection of carotid artery (principal); G45.9 Transient cerebral ischemic attack, unspecified; D50.9 Iron deficiency anemia, unspecified; I10 Essential (primary) hypertension; E78.5 Hyperlipidemia, unspecified; J44.9 Chronic obstructive pulmonary disease, unspecified; K21.9 Gastro-esophageal reflux disease without esophagitis; E53.8 Deficiency of other specified B group vitamins; G20 Parkinson's disease; M81.0 Age-related osteoporosis without current pathological fracture; Z86.73 Personal history of transient ischemic attack (TIA), and cerebral infarction without residual deficits; Z79.02 Long term (current) use of antithrombotics/antiplatelets; Z87.891 Personal history of nicotine dependence; Z23 Encounter for immunization
CPT/HCPCS: 36415; 70450; 70496; 70498; 70553; 71045; 80048; 80053; 80061; 81001; 82607; 82728; 82746; 83540; 83550; 83735; 84466; 84484; 85014; 85018; 85025; 85027; 85610; 85730; 90471; 90686; 93005; 93306; 93880; 96365; 96366; 96372; 96375; 99285; A9270; A9577; G0008; G0378; J1756; J3420; J7050; Q9967

== ENCOUNTER 2020-04-13 18:53 | Emergency (ER) | payer OTHER, SELFPAY ==
[2020-04-13 18:57] VITALS: BP 162/99; PULSE 103; RESP 18; TEMP 37.2; O2SAT 100
--- NOTE | 2020-04-13 19:40 | ED.SKABFB ---
HPI - Skin/Abscess/Foreign Bdy General Chief complaint: Skin/Abscess/Foreign Body Stated complaint: L arm swelling Time Seen by Provider: 04/13/20 19:01 History of Present Illness HPI narrative: Patient is a 69-year-old female who presents ER with left upper extremity discomfort. Patient had been admitted to the hospital recently and was diagnosed with carotid dissection. She is on antiplatelet therapy. She is also known to have some esophageal and GI ulcers for which she takes a PPI. Patient was receiving an iron infusion yesterday prior to her discharge when the IV infiltrated. The IV was then removed. Patient developed pain and redness the arm. This persisted into today. Her granddaughter has circled it. There is no fevers or chills related to this. No drainage of pus from the IV site. There is pain in the bicep when she performs active range of motion and less pain when there is passive range of motion performed at the elbow. There is a palpable cord in the center. Patient is having no chest pain or shortness of breath. She has been afebrile. She is not on any antibiotics. She has been applying cold packs for comfort. She is also taken Tylenol. Related Data Home Medications Medication Instructions Recorded Confirmed albuterol sulfate 90 mcg/actuation 2 inhalation INHALATION Q4-6H PRN 07/22/19 04/10/20 breath activated powder inhaler fluticasone propionate 50 1 spray NASAL DAILY 07/22/19 04/10/20 mcg/actuation nasal spray,suspension sertraline 100 mg tablet 100 mg PO HS 07/22/19 04/10/20 clopidogrel 75 mg PO 1700 03/09/20 04/10/20 Allergies Allergy/AdvReac Type Severity Reaction Status Date / Time famotidine Allergy Unknown Hives Verified 04/13/20 19:03 Review of Systems Review of Systems: All systems reviewed & are unremarkable except as noted in HPI and below Constitutional: Constitutional: Denies chills, Denies fever(s) and Denies weakness Cardiovascular: Cardiovascular: Denies chest pain and Denies rapid heart rate Respiratory: Respiratory: Denies cough and Denies dyspnea Musculoskeletal: Musculoskeletal: Denies arthralgias, Denies joint swelling and Reports muscle cramps Integumentary/Breasts: Skin/Breast: Reports erythema and Reports rash PMFSH Social History Social History Social History: Surrogate decision maker: Sheila Goetz, daughter. Code status: Full code. Smoking packs per day: 3 Smoking cigarettes per day: 60.0 Years smoked: 40 Smoking pack-years: 120.00 Smoking status: Former smoker Tobacco type: cigarettes Second hand tobacco smoke exposure: No Alcohol intake: never Substance use: never Substance use type: does not use Additional living arrangements comments: Lives with her 3 cats in [place]. 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 Gender identity (if verbalized by the patient): Female Spiritual care concerns: No Agree to blood products: Yes Exam Narrative: Exam Narrative: GENERAL: Well-appearing, well-nourished, and in no acute distress. HEAD: Normocephalic, atraumatic. CHEST: Clear to auscultation. No respiratory distress. HEART: Regular rate and rhythm. Normal peripheral pulses. EXTREMITIES: Normal range of motion. No edema. SKIN: Warm, dry. Left mid bicep down to the proximal forearm just past the antecubital fossa demonstrates warmth and erythema. There is a palpable cord from the antecubital fossa proximally up the biceps. Scab located over where the IV was placed in the affected area. No purulent drainage or fluctuant abscess. NEURO: Alert and oriented x3. PSYCH: Normal mood and affect. Course Course Emergency Course: Suspect inflammatory reaction related to extravasation of iron and likely superficial thrombophlebitis. Due to elevated white blood cell count will be conservative and give patient oral antibiotics as well. Recommend follow-u
[2020-04-13 19:47] LABS: Basophils Absolute Auto 0.1 K/mm3 (0.0-0.1); Basophils Percent Auto 0.4 % (0.2-1.2); Eosinophils Percent Auto 0.3 % (0-4.4); Hematocrit 28.9 % (37.0-47.0); Hemoglobin 8.4 g/dL (12.0-15.0); Immature Granulocyte Absolute 0.06 K/mm3 (0.00-0.031); Immature Granulocyte Percent A 0.5 % (0-0.5); Lymphocytes Absolute Auto 1.63 K/mm3 (0.9-3.2); Lymphocytes Percent Auto 13.8 % (18.3-44.2); Mean Corpuscular HGB Conc 29.1 g/dl (32-36); Mean Corpuscular Hemoglobin 18.9 pg (26-34); Mean Corpuscular Volume 64.9 fl (80-100); Mean Platelet Volume 10.5 fl (7.4-10.4); Monocytes Percent Auto 8.2 % (2.6-8.5); Neutrophils Percent Auto 76.8 % (45.5-73.1); Nucleated Red Blood Cells Perc 0.2 % (0.0-0.2); Platelet Count Result 451 k/mm3 (150-375); Red Blood Count 4.45 M/mm3 (4.2-5.4); White Blood Count 11.8 K/mm3 (4.5-10.0)
[2020-04-13 19:59] LABS: Anion Gap 10 mmol/L (8-16); Blood Urea Nitrogen 17 mg/dL (7-17); Calcium 9.4 mg/dL (8.4-10.2); Carbon Dioxide 24 mmol/L (22-30); Chloride 102 mmol/L (98-107); Estimated CRCL calculation 67 ml/min; Estimated Glomerular Filt Rate > 60; Glucose 106 mg/dL (65-105); Potassium 3.5 mmol/L (3.4-5.0); Sodium 136 mmol/L (137-145)
[2020-04-13 20:04] LABS: Anisocytosis 2+ (NORMAL); Platelet Estimate Adequate (Adequate)
[2020-04-13 21:10] VITALS: BP 151/79; PULSE 88; RESP 18; O2SAT 97
[2020-04-13] MEDS: CLINDAMYCIN HCL 150 MG CAP 300 MG PO (21:37)
[2020-04-13 21:59] VITALS: BP 153/82; PULSE 86; RESP 20; O2SAT 97
== END 2020-04-13 22:33 | disposition home or self-care (01) ==
PROVIDERS: Emergency Provider Emergency Medicine; PCP Family Medicine
DX: I80.8 Phlebitis and thrombophlebitis of other sites (principal); L03.114 Cellulitis of left upper limb; Z87.891 Personal history of nicotine dependence
CPT/HCPCS: 36415; 80048; 85025; 99283; A9270

== ENCOUNTER 2020-05-06 20:52 | Emergency (ER) | payer OTHER, SELFPAY ==
[2020-05-06 20:54] VITALS: BP 147/113; PULSE 71; RESP 16; TEMP 37; O2SAT 100
[2020-05-06 21:25] VITALS: BP 151/82; PULSE 60; RESP 16; O2SAT 97
[2020-05-06 21:50] LABS: Basophils Absolute Auto 0.1 K/mm3 (0.0-0.1); Basophils Percent Auto 1.2 % (0.2-1.2); Eosinophils Absolute Auto 0.2 K/mm3 (0-0.3); Eosinophils Percent Auto 3.5 % (0-4.4); Hematocrit 36.3 % (37.0-47.0); Hemoglobin 10.9 g/dL (12.0-15.0); Immature Granulocyte Absolute 0.01 K/mm3 (0.00-0.031); Immature Granulocyte Percent A 0.2 % (0-0.5); Lymphocytes Absolute Auto 1.18 K/mm3 (0.9-3.2); Lymphocytes Percent Auto 27.5 % (18.3-44.2); Mean Corpuscular Hemoglobin 22.8 pg (26-34); Mean Corpuscular Volume 75.9 fl (80-100); Mean Platelet Volume 10.2 fl (7.4-10.4); Monocytes Absolute Auto 0.5 K/mm3 (0.1-0.6); Monocytes Percent Auto 10.5 % (2.6-8.5); Neutrophils Absolute Auto 2.5 K/mm3 (1.3-6.7); Neutrophils Percent Auto 57.1 % (45.5-73.1); Platelet Count Result 295 k/mm3 (150-375); Red Blood Count 4.78 M/mm3 (4.2-5.4); White Blood Count 4.3 K/mm3 (4.5-10.0)
[2020-05-06 22:00] LABS: Ovalocytes 1+ (NORMAL); Platelet Estimate Adequate (Adequate)
[2020-05-06 22:01] LABS: Anion Gap 8 mmol/L (8-16); Blood Urea Nitrogen 15 mg/dL (7-17); Calcium 9.6 mg/dL (8.4-10.2); Carbon Dioxide 28 mmol/L (22-30); Chloride 103 mmol/L (98-107); Estimated Glomerular Filt Rate > 60; Glucose 114 mg/dL (65-105); Potassium 3.5 mmol/L (3.4-5.0); Sodium 139 mmol/L (137-145)
--- NOTE | 2020-05-06 22:14 | ED.RECABL ---
HPI - Recheck/Abnormal Lab/Rx General Chief Complaint: Recheck/Abnormal Lab/Rx Stated Complaint: high bp Time Seen by Provider: 05/06/20 21:23 History of Present Illness HPI narrative: Patient is a 69-year-old female who presents the ER with concerns for hypertension. She has been taking her blood pressure at home and will occasionally have a systolic blood pressure in the 180s 190s. Typically she is lower. Anytime she takes her blood pressure medication her blood pressure goes down. She has no chest pain or shortness of breath. No focal neurologic deficit. Patient did experience complications from a carotid artery dissection recently has her concerned. She is on Plavix. Related Data Home Medications Medication Instructions Recorded Confirmed albuterol sulfate 90 mcg/actuation 2 inhalation INHALATION Q4-6H PRN 07/22/19 04/10/20 breath activated powder inhaler fluticasone propionate 50 1 spray NASAL DAILY 07/22/19 04/10/20 mcg/actuation nasal spray,suspension sertraline 100 mg tablet 100 mg PO HS 07/22/19 04/10/20 clopidogrel 75 mg PO 1700 03/09/20 04/10/20 lisinopril 10 mg tablet 10 mg PO DAILY 04/24/20 Allergies Allergy/AdvReac Type Severity Reaction Status Date / Time famotidine Allergy Unknown Hives Verified 05/06/20 20:58 Review of Systems Review of Systems: All systems reviewed & are unremarkable except as noted in HPI and below Cardiovascular: Cardiovascular: Denies chest pain and Denies radiating jaw, neck or arm pain Respiratory: Respiratory: Denies cough and Denies dyspnea Gastrointestinal: Gastrointestinal: Denies abdominal pain, Denies nausea and Denies vomiting Neurologic: Denies headache(s), Denies focal weakness and Denies numbness [facility] Social History Social History Social History: Surrogate decision maker: Sheila Goetz, daughter. Code status: Full code. Smoking packs per day: 3 Smoking cigarettes per day: 60.0 Years smoked: 40 Smoking pack-years: 120.00 Smoking status: Former smoker Tobacco type: cigarettes Second hand tobacco smoke exposure: No Alcohol intake: never Substance use: never Substance use type: does not use Additional living arrangements comments: Lives with her 3 cats in [place]. 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 Gender identity (if verbalized by the patient): Female Spiritual care concerns: No Agree to blood products: Yes Exam Narrative: Exam Narrative: GENERAL: Well-appearing, well-nourished, and in no acute distress. HEAD: Normocephalic, atraumatic. CHEST: Clear to auscultation. No respiratory distress. HEART: Regular rate and rhythm. Normal peripheral pulses. ABDOMEN: Soft, nontender, nondistended. EXTREMITIES: Normal range of motion. No edema. SKIN: Warm, dry, no rash. NEURO: Alert and oriented x3. Course Course Emergency Course: BP in the 150's. D/c Vital Signs Vital signs: Vital Signs Temperature 98.6 F 05/06/20 20:54 Pulse Rate 71 05/06/20 20:54 Respiratory Rate 16 05/06/20 20:54 Blood Pressure 147/113 H 05/06/20 20:54 Pulse Oximetry 100 05/06/20 20:54 Temperature 98.6 F 05/06/20 20:54 Pulse Rate 60 05/06/20 21:25 Respiratory Rate 16 05/06/20 21:25 Blood Pressure 151/82 H 05/06/20 21:25 Pulse Oximetry 97 05/06/20 21:25 MDM - Recheck/Abnormal Lab/Rx Lab Data Result diagrams: 05/06/20 21:45 05/06/20 21:45 Labs: Lab Results 05/06/20 05/06/20 Range/Units 21:45 21:45 WBC 4.3 L (4.5-10.0) K/mm3 RBC 4.78 (4.2-5.4) M/mm3 Hgb 10.9 L (12.0-15.0) g/dL Hct 36.3 L (37.0-47.0) % MCV 75.9 L (80-100) fl MCH 22.8 L (26-34) pg MCHC 30.0 L (32-36) g/dl RDW TNP Plt Count 295 (150-375) k/mm3 MPV 10.2 (7.4-10.4) fl Immature Gran % (Auto) 0.2 (0-0.5) % Neut % (Auto) 57.1 (45.5-73.1) % Lymph % (Auto) 27.5
[2020-05-06 22:34] VITALS: BP 154/90; PULSE 62; RESP 16; TEMP 36.7; O2SAT 99
== END 2020-05-06 22:34 | disposition home or self-care (01) ==
PROVIDERS: Emergency Provider Emergency Medicine; PCP Family Medicine
DX: I10 Essential (primary) hypertension (principal); Z79.02 Long term (current) use of antithrombotics/antiplatelets; Z87.891 Personal history of nicotine dependence
CPT/HCPCS: 36415; 80048; 85025; 99283

== ENCOUNTER 2020-05-08 01:13 | Outpatient (CLI) | payer OTHER, SELFPAY ==
[2020-05-08 16:30] LABS: SARS-CoV-2 RNA PCR Negative
== END 2020-05-08 01:14 | disposition home or self-care (01) ==
LOC: ANHCOVIDDT 01:13
PROVIDERS: PCP Family Medicine; Visit Provider Specialist
DX: Z01.812 Encounter for preprocedural laboratory examination (principal); Z20.828 Contact with and (suspected) exposure to other viral communicable diseases
CPT/HCPCS: 87635; C9803; U0003

== ENCOUNTER 2020-05-11 05:38 | Day surgery (SDC) | payer OTHER, SELFPAY ==
[2020-05-11 09:00] VITALS: BP 162/91; PULSE 65; RESP 14; TEMP 36.8; O2SAT 98
--- NOTE | 2020-05-11 10:46 | WPDCARDPROC ---
Cardiac Cath Procedure Note Date of procedure:: 05/11/20 Performing physician:: Sunny Springer MD Indication:: TIA, rule out paroxysmal atrial fib Brief clinical history:: 69-year-old patient with the diagnosis of recent TIA and desires to rule out paroxysmal AFib. In this setting implantation of a loop recorder has been recommended. Procedure Procedure performed:: Implantation of Medtronic LINQ loop recorder Sedation/Medication given:: no sedation Access site:: left anterior chest wall Estimated blood loss:: minimal Procedure note:: patient was brought to the cardiac catheterization lab holding area where the left anterior chest wall was prepped and draped in the usual sterile fashion. Griffin was made in the midclavicular line in the 4th intercostal space. 20 cc of 1% lidocaine was used to infiltrate the area for local anesthesia. Following this the Medtronic LINQ loop recorder her device was opened the supplied puncture blade was used to create the stab incision. The supplied insertion tool was then used to easily insert in place the Medtronic LINQ loop recorder in the subcutaneous tissue inferior to the stab/puncture wound. Procedure was well tolerated and free of complications the patient had a drop of bio glue placed on the puncture site and then a Band-Aid. Signal from the device was adequate. Findings:: Successful uncomplicated implantation of Medtronic LINQ loop recorder in this patient with TIA to rule out paroxysmal AFib Conclusion:: as above
[2020-05-11 11:10] VITALS: BP 155/90; RESP 15
[2020-05-11 11:17] VITALS: BP 155/90; PULSE 63; RESP 18; O2SAT 97
== END 2020-05-11 12:13 | disposition home or self-care (01) ==
PROVIDERS: PCP Family Medicine; Visit Provider Specialist
PROC: (CPT 33285; principal; 2020-05-11 10:00)
DX: G45.9 Transient cerebral ischemic attack, unspecified (principal)
CPT/HCPCS: 33285; C1764

== ENCOUNTER 2020-06-19 20:54 | Observation (INO) | payer OTHER, SELFPAY ==
--- NOTE | ~2020-06-19 | XR_ITS ---
XR chest 1V portable DATE: 06/19/2020 21:37 INDICATION: Acute confusion. COPD. TECHNIQUE: 06/19/2020 portable AP chest at 2134 hours COMPARISON: 04/10/2020 portable AP chest at 1205 hours FINDINGS: school lunch monitor Device overlies the left chest. No pulmonary infiltrate or consolidation, pleural effusion or pulmonary vascular congestion or pneumo thorax is evident. Heart size is likely within normal range considering magnification associated with AP projection. There is aortic arch calcification and minimal aortic tortuosity. IMPRESSION: No active cardiopulmonary disease Reviewed, dictated and finalized at location A. N ENGINEER
--- NOTE | ~2020-06-19 | CT_ITS ---
EXAMINATION: CT brain wo con DATE: 06/19/2020 21:38 INDICATION: Acute confusion TECHNIQUE: Computed tomography (CT) of the head was performed without intravenous contrast. The mA wa s adjusted according to patient size. Iterative reconstruction technique was employed. Exam dose: 60 5.33 mGy-cm total exam DLP. COMPARISON: 04/10/2020 CTA brain carotid 04/10/2020 MRI brain/brainstem 04/2020 CT brain FINDINGS: Carotid siphon internal carotid artery calcifications are noted. There is nonspecific dimin ished attenuation of the cerebral white matter, likely due to chronic small vessel ischemic changes. No intracranial mass lesion or hemorrhage, midline shift or mass effects or recent cerebrovascular ac cident is detected. Mild cerebellar and cerebral volume loss consistent with patient age. No subdural or epidural hematom a. No skull fracture or bone destruction. Included paranasal sinuses and mastoid air cells are unremarka ble. IMPRESSION: Cerebral atherosclerosis and chronic small vessel ischemic changes of the white matter No acute intracranial finding noted Reviewed, dictated and finalized at Location [facility]. Reviewed, dictated and finalized at location A. [place] AGENT
[2020-06-19 20:55] VITALS: BP 218/122; PULSE 83; RESP 18; TEMP 36.6; O2SAT 95
--- NOTE | 2020-06-19 21:05 | ED.AMS ---
HPI - Altered Mental Status General Chief Complaint: Altered Mental Status Stated Complaint: amb Time Seen by Provider: 06/19/20 21:05 Source: patient Mode of arrival: EMS Limitations: no limitations History of Present Illness HPI narrative: 69-year-old woman with a history of TIAs brought to the emergency department today by EMS after she was stopped by police because she drove by them several times. Patient states that she went to [employer] today and on her way home was forced to take a detour. She states that she got lost and was driving around trying to find her way when she got pulled over. Police were concerned that she was confused and called EMS. She denies weakness, problems understanding or speaking language, facial drooping, headache, confusion, chest pain, nausea, shortness of breath or back pain. She states she has not eaten since 10:00 a.m. this morning. Patient states her past TIA is usually involved facial numbness, difficulty understanding, difficulty speaking or inability to walk. She states that she has problems with an artery in her neck. Police told the patient's daughter that she was swerving on the road but did not appear intoxicated. She told them she thought she was in [place]. complaint: confusion Onset (ago): hour(s) (1-2) Severity: mild Consistency of symptoms: unknown Associated symptoms: denies other symptoms Related Data Home Medications Medication Instructions Recorded Confirmed albuterol sulfate 90 mcg/actuation 2 inhalation INHALATION Q4-6H PRN 07/22/19 06/19/20 breath activated powder inhaler fluticasone propionate 50 1 spray NASAL DAILY 07/22/19 06/19/20 mcg/actuation nasal spray,suspension clopidogrel 75 mg PO 1700 03/09/20 06/19/20 carvedilol 3.125 mg tablet 3.125 mg PO Q12H 05/11/20 06/19/20 Allergies Allergy/AdvReac Type Severity Reaction Status Date / Time famotidine Allergy Unknown Hives Verified 05/12/20 08:36 Review of Systems Constitutional: Constitutional: Denies chills, Denies fever(s) and Denies weakness Eyes: Eyes: Denies change in vision and Denies photophobia ENT: Denies dysphagia, Denies nasal congestion and Denies sore throat Cardiovascular: Cardiovascular: Denies chest pain and Denies radiating jaw, neck or arm pain Respiratory: Respiratory: Denies cough, Reports dyspnea (Chronic from COPD) and Denies wheezing Gastrointestinal: Gastrointestinal: Denies abdominal pain, Denies nausea and Denies vomiting Genitourinary: Genitourinary: Denies hematuria, Denies nocturia and Denies dysuria Musculoskeletal: Musculoskeletal: Denies arthralgias and Denies joint swelling Integumentary/Breasts: Skin/Breast: Denies pruritus, Denies erythema and Denies rash Neurologic: Denies vertigo, Denies dizziness and Denies syncope Hematologic/Lymphatic: Hematologic/Lymphatic: Denies easy bleeding and Denies easy bruising Allergic/Immunologic: Allergic/Immunologic: Denies lip swelling and Denies tongue swelling [facility] Past Medical History Medical History (Updated 06/19/20 @ 23:52 by Zachary Short MD) Cerebrovascular accident Initially with left side weakness, now without any significant deficit. Chronic obstructive pulmonary disease Colon polyps Diverticulosis Esophageal ulcer without bleeding (~03/26/20) Gastroesophageal reflux disease Hiatal hernia Hyperlipidemia Hypertension No longer on medication. Iron deficiency anemia Osteoporosis Surgical History Surgical History History of appendectomy History of hysterectomy with oophorectomy History of tonsillectomy Status post right foot surgery (~02/2017) Bilateral bunionectomy and arthroplasty of several digits. Family History Family History Mother Diabetes mellitus Hypertension Family history of cardiovascular disease Father Diabetes mellitus Family history of Parkinson's d
--- NOTE | 2020-06-19 21:06 | ECG_ITS ---
Measurements Intervals [place] Rate: 76 P: 31 [place]: 200 QRS: 9 QRSD: 80 T: 5 QT: 361 QTc: 408 Interpretive Statements SINUS RHYTHM DELAYED PRECORDIAL R/S TRANSITION NONSPECIFIC T WAVE ABNORMALITY- ANT/INF LEADS BASELINE ARTIFACT- II, III, AVF BORDERLINE ECG Electronically Signed On 06-20-2020 8:55:43 ED TECH by Lonnie Urbina D.O.
[2020-06-19 21:09] LABS: Glucose Point of Care 96 (65-105)
[2020-06-19 21:22] LABS: Base Excess ABG 0.6 mmol/L (0-2); Carboxyhemoglobin 0.5 % (0-1.5); HCO3 ABG 24.9 mmol/L (23-29); Methemoglobin ABG 0.1 % (0-1.5); Oxygen Content ABG 18.8 %vol (16.0-22.0); Oxygen Saturation ABG 93.4 % (95-97); Oxyhemoglobin 92.8 % (94-100); PCO2 ABG 38.9 mmHg (35-45); PO2 ABG 65.8 mmHg (75-85); Reduced Hemoglobin 6.6 % (0-1.5); Total Hemoglobin 14.4 g/dL; pH ABG 7.42 (7.35-7.45)
[2020-06-19 21:25] LABS: Device ROOM AIR; Modified Allen's Test Pass; Site Drawn LEFT RADIAL
[2020-06-19 21:26] LABS: Basophils Absolute Auto 0.05 K/mm3 (0.00-0.10); Basophils Percent Auto 0.9 % (0.0-1.0); Eosinophils Absolute Auto 0.11 K/mm3 (0.02-0.50); Hematocrit 43.7 % (35.0-42.0); Hemoglobin 13.7 g/dL (11.7-13.8); Immature Granulocyte Absolute 0.01 K/mm3 (0.00-0.00); Immature Granulocyte Percent A 0.2 % (0.0-0.0); Lymphocytes Absolute Auto 1.59 K/mm3 (1.10-4.50); Lymphocytes Percent Auto 28.7 % (18.0-42.0); Mean Corpuscular HGB Conc 31.4 g/dL (32.0-36.0); Mean Corpuscular Hemoglobin 25.5 pg (27.0-31.0); Mean Corpuscular Volume 81.4 fL (78.0-102.0); Mean Platelet Volume 10.3 fl (9.2-11.8); Monocytes Absolute Auto 0.47 K/mm3 (0.10-0.90); Monocytes Percent Auto 8.5 % (2.0-11.0); Neutrophils Absolute Auto 3.3 K/mm3 (1.7-7.2); Neutrophils Percent Auto 59.7 % (50.0-70.0); Platelet Count Result 275 K/mm3 (150-420); Red Blood Count 5.37 M/mm3 (4.20-5.40); Red Cell Distribution Width 21.4 % (11.6-14.4); White Blood Count 5.5 K/mm3 (4.8-10.8)
[2020-06-19 21:40] LABS: INR 1.1; Partial Thromboplastin Time 30.2 SEC (22.3-31.6); Prothrombin Time 11.1 Seconds (9.64-11.0)
[2020-06-19 21:43] LABS: Alanine Aminotransferase 28 U/L (14-59); Albumin Level 3.7 g/dL (3.4-5.0); Alkaline Phosphatase 69 U/L (46-116); Anion Gap 10 mmol/L (8-16); Aspartate Amino Transferase 18 U/L (15-37); Bilirubin,Total 0.3 mg/dL (0.00-1.00); Blood Urea Nitrogen 16 mg/dL (7-18); Calcium 9.9 mg/dL (8.5-10.1); Carbon Dioxide 28 mmol/L (21-32); Chloride 102 mmol/L (98-108); Estimated Glomerular Filt Rate > 60; Ethanol 4 mg/dL (0-6); Glucose 104 mg/dL (70-99); Osmolality Calculated 291 mOsm/kg (285-295); Potassium 3.5 mmol/L (3.5-5.1); Sodium 140 mmol/L (136-145); Total Protein 7.6 g/dL (6.4-8.2); Troponin I < 0.02 ng/mL (0.00-0.056)
[2020-06-19 22:00] VITALS: BP 190/113
[2020-06-19 22:07] VITALS: PULSE 83
[2020-06-19] MEDS: lisinopriL 20 MG TABLET PO (22:07)
[2020-06-19] MEDS: carvediloL 3.125 MG TABLET PO (22:07)
[2020-06-19 22:23] VITALS: BP 174/101; PULSE 74; RESP 18; O2SAT 98
[2020-06-19 22:41] VITALS: BP 158/86; PULSE 72; RESP 16; O2SAT 100
--- NOTE | 2020-06-19 22:42 | PC.NURSE ---
Pt ambulatory to bathroom with minimal assistance x 1.
[2020-06-19 22:46] LABS: Appearance Urine Clear (Clear); Bilirubin Urine Negative (Negative); Color Urine Yellow (Yellow); Glucose Urine UA Negative (Negative); Ketones Urine Trace (Negative); Leukocyte Esterase Ur Trace LEU/UL (Negative); Nitrate Urine Negative (Negative); Protein Urine Negative (Negative); Specific Grav Ur >= 1.030 (1.010-1.020); Urobilinogen Urine 0.2 mg/dL (0.2-1.0)
[2020-06-19 22:53] LABS: Amphetamine Screen Urine Negative (Negative); Barbiturate Screen Urine Negative (Negative); Benzodiazepines Screen Urine Negative (Negative); Cannabinoid Screen Urine Negative (Negative); Cocaine Screen Urine Negative (Negative); Methadone Screen Urine Negative (Negative); Opiate Screen Urine Negative (Negative); Phencyclidine Screen Urine Negative (Negative)
[2020-06-19 22:54] LABS: Add Urine Microscopic? YES; Bacteria Urine Trace /hpf; Blood Urine Trace-Intact (Negative); Mucus Urine Rare /lpf; Squamous Epithelial Cell Urine Rare /hpf (Few)
[2020-06-20] VITALS (7 sets, daily range): BP systolic 144–174; BP diastolic 66–99; PULSE 60–86; RESP 16–18; TEMP 36.3–36.6; O2SAT 95–100; BMI 35.4
--- NOTE | 2020-06-20 00:28 | PC.NURSE ---
Admitted to observation for r/o CVA, no complaints on arrival, a/o x4, oriented to room, no chest pain no SOB, see graphic for vitals, [facility]
[2020-06-20] MEDS: LORazepam (*CRX) 0.5 MG TABLET 0.25 MG PO (00:43)
--- NOTE | 2020-06-20 02:42 | PC.NURSE ---
Resting quietly, telemetry SB 50's
--- NOTE | 2020-06-20 03:30 | PC.NURSE ---
Telemetry SB-SR 50-60's, no distress noted, is alert and oriented when awake, moves all extremities
[2020-06-20 08:00] LABS: Glucose Point of Care 92 (65-105)
[2020-06-20] MEDS: ASPIRIN 81 MG ENTERIC TABLET PO (09:08)
[2020-06-20] MEDS: lisinopriL 20 MG TABLET PO (09:08)
[2020-06-20] MEDS: SERTRALINE HCL 50 MG TABLET 150 MG PO (09:08)
[2020-06-20] MEDS: CYANOCOBALAMIN 1,000 MCG TABLET 1000 MCG PO (09:08)
[2020-06-20] MEDS: carvediloL 3.125 MG TABLET PO (09:09)
[2020-06-20] MEDS: PANTOPRAZOLE 40 MG TABLET PO (09:48)
[2020-06-20] MEDS: FERROUS SULFATE 324 MG TABLET PO (09:48)
--- NOTE | 2020-06-20 11:08 | PM.SD ---
Same Day Admit/Disch: HPI History of Present Illness Chief complaint: amb Narrative: Lauryn Sanchez is a 69 year old female who presented to the hospital with confusion. This morning patient states that she was driving to 1 particular [employer] that did not having item she wanted so she drove to a different [employer] and that store also did not have the items she wanted. She then decided to start driving home and had taken detour for some reason and ended up getting loss for approximately 2 hours. Per ER report press officer noted she was swerving older over and then brought her in for evaluation. [facility] Past Medical History Medical History Cerebrovascular accident Initially with left side weakness, now without any significant deficit. Chronic obstructive pulmonary disease Colon polyps Diverticulosis Esophageal ulcer without bleeding (~03/26/20) Gastroesophageal reflux disease Hiatal hernia Hyperlipidemia Hypertension No longer on medication. Iron deficiency anemia Osteoporosis Surgical History Surgical History History of appendectomy History of hysterectomy with oophorectomy History of tonsillectomy Status post right foot surgery (~02/2017) Bilateral bunionectomy and arthroplasty of several digits. Family History Family History Mother Diabetes mellitus Hypertension Family history of cardiovascular disease Father Diabetes mellitus Family history of Parkinson's disease Family history of Alzheimer's disease Grandparent Family history of arthritis Social History Social History Social History: Surrogate decision maker: Sheila Goetz, daughter. Code status: Full code. Smoking packs per day: 3 Smoking cigarettes per day: 60.0 Years smoked: 40 Smoking pack-years: 120.00 Smoking status: Never smoker Tobacco type: cigarettes Second hand tobacco smoke exposure: No Alcohol intake: never Substance use: never Substance use type: does not use Additional living arrangements comments: Lives with her 3 cats in [place]. 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 Gender identity (if verbalized by the patient): Female Spiritual care concerns: No Agree to blood products: Yes Same Day Admit/Disch: Med Pre-admit Medications Home Medications Medication Instructions Recorded Confirmed Type albuterol sulfate 90 mcg/actuation 2 inhalation INHALATION Q4-6H PRN 07/22/19 06/19/20 History breath activated powder inhaler fluticasone propionate 50 1 spray NASAL DAILY 07/22/19 06/19/20 History mcg/actuation nasal spray,suspension clopidogrel 75 mg PO 1700 03/09/20 06/19/20 History aspirin [Adult Aspirin Regimen] 81 mg PO DAILY #30 tablet 04/11/20 06/19/20 Rx rosuvastatin [Crestor] 20 mg PO HS #30 tablet 04/11/20 06/19/20 Rx cyanocobalamin (vitamin B-12) 1,000 mcg PO QAM #30 tablet 04/12/20 06/19/20 Rx [Vitamin B-12] ferrous sulfate 324 mg PO BID #60 tablet 04/12/20 06/19/20 Rx pantoprazole 40 mg PO Q12HR #60 tablet 04/12/20 06/19/20 Rx carvedilol 3.125 mg tablet 3.125 mg PO Q12H 05/11/20 06/19/20 History lisinopril 20 mg tablet 20 mg PO BID #180 tablet 05/12/20 06/19/20 Rx nystatin 100,000 unit/gram topical 1 applic TOPICAL BID #30 gm 05/12/20 06/19/20 Rx ointment sertraline 100 mg tablet See Rx Instructions PO DAILY #135 05/12/20 06/19/20 Rx tablet Exam Const: General: cooperative, comfortable, no acute distress, alert, awake and Physically active Nutritional Appearance: overweight Resp: Effort & Inspection: normal respiratory effort Auscultation: clear to auscultation bilaterally Cardio: Jugular venous distension: no JVD Rate: regular rate Rhythm: regular rhythm Heart sounds: S1 normal heart sound present and
--- NOTE | 2020-06-20 14:03 | PC.NURSE ---
1115 she has been a&o all this shift and no neuro deficits noted. denies cp. sr on tele.
--- NOTE | 2020-06-23 10:03 | PC.NURSE ---
Pt stated she received and understood her discharge instructions. Pt had no other comments.
== END 2020-06-20 13:45 | disposition home or self-care (01) ==
LOC: CHSED 23:52 → CHS2ND 06-20 11:21
PROVIDERS: Admitting Provider Emergency Medicine; Emergency Provider Emergency Medicine; Visit Provider Emergency Medicine
DX: R41.0 Disorientation, unspecified (principal); J44.9 Chronic obstructive pulmonary disease, unspecified; I10 Essential (primary) hypertension; D50.9 Iron deficiency anemia, unspecified; K57.30 Diverticulosis of large intestine without perforation or abscess without bleeding; K21.9 Gastro-esophageal reflux disease without esophagitis; K44.9 Diaphragmatic hernia without obstruction or gangrene; E78.5 Hyperlipidemia, unspecified; M81.0 Age-related osteoporosis without current pathological fracture; Z87.891 Personal history of nicotine dependence; Z86.010 Personal history of colon polyps; Z86.73 Personal history of transient ischemic attack (TIA), and cerebral infarction without residual deficits; Z79.899 Other long term (current) drug therapy; Z79.02 Long term (current) use of antithrombotics/antiplatelets
CPT/HCPCS: 36415; 36600; 70450; 71045; 80053; 80307; 81001; 82375; 82805; 82948; 83050; 84484; 85025; 85610; 85730; 93005; 99285; A9270; G0378

== ENCOUNTER 2020-07-15 12:56 | Emergency (ER) | payer OTHER, MEDICAID, SELFPAY ==
[2020-07-15 13:07] VITALS: BP 159/112; PULSE 71; RESP 16; TEMP 37.1; O2SAT 99
[2020-07-15] MEDS: cloNIDine HCL 0.1 MG TABLET PO (13:13)
--- NOTE | 2020-07-15 13:50 | ED.WOUNDLAC ---
HPI - Wound/Laceration General Chief Complaint: Wound/Laceration Stated Complaint: Laceration on finger Source: patient and RN notes reviewed Mode of arrival: ambulatory History of Present Illness HPI narrative: This is a 69-year-old white female who presented today at our urgent care with a laceration to the tip of her left pointer finger. Patient she was attempting to cut a break and sliced the tip of her finger. She does have sensations to the base of the finger and full range of motion. Patient does have excessive bleeding but she takes anticoagulant for a heart condition. Patient's blood pressure was also elevated at 159/112. According to patient she did not take her blood pressure medication this morning we did give her clonidine 0.1 mg 1 time before discharge. The patient denies SOB, CP, palpitation, extremity numbness, lightheadedness, dizziness, constipation, diarrhea, chills, or fever. 5 sutures were placed at the tip of her finger at the flap. Patient replete blood pressure 159/105. Patient will take her antihypertension medication wants to get home with follow-up with her primary care physician. Related Data Home Medications Medication Instructions Recorded Confirmed albuterol sulfate 90 mcg/actuation 2 inhalation INHALATION Q4-6H PRN 07/22/19 06/19/20 breath activated powder inhaler fluticasone propionate 50 1 spray NASAL DAILY 07/22/19 06/19/20 mcg/actuation nasal spray,suspension carvedilol 3.125 mg tablet 3.125 mg PO Q12H 05/11/20 06/19/20 Allergies Allergy/AdvReac Type Severity Reaction Status Date / Time famotidine Allergy Unknown Hives Verified 07/15/20 13:01 Review of Systems Review of Systems: All systems reviewed & are unremarkable except as noted in HPI and below (10 point system review) [facility] Past Medical History Medical History (Updated 07/15/20 @ 13:49 by SHERI Martin) Cerebrovascular accident Initially with left side weakness, now without any significant deficit. Chronic obstructive pulmonary disease Colon polyps Diverticulosis Esophageal ulcer without bleeding (~03/26/20) Gastroesophageal reflux disease Hiatal hernia Hyperlipidemia Hypertension No longer on medication. Iron deficiency anemia Osteoporosis Surgical History Surgical History History of appendectomy History of hysterectomy with oophorectomy History of tonsillectomy Status post right foot surgery (~02/2017) Bilateral bunionectomy and arthroplasty of several digits. Family History Family History Mother Diabetes mellitus Hypertension Family history of cardiovascular disease Father Diabetes mellitus Family history of Parkinson's disease Family history of Alzheimer's disease Grandparent Family history of arthritis Social History Social History Social History: Surrogate decision maker: Sheila Goetz, daughter. Code status: Full code. Smoking packs per day: 3 Smoking cigarettes per day: 60.0 Years smoked: 40 Smoking pack-years: 120.00 Smoking status: Never smoker Tobacco type: cigarettes Second hand tobacco smoke exposure: No Alcohol intake: never Substance use: never Substance use type: does not use Additional living arrangements comments: Lives with her 3 cats in [place]. 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 Gender identity (if verbalized by the patient): Female Spiritual care concerns: No Agree to blood products: Yes Exam Narrative: Exam Narrative: GENERAL: This is a well-nourished, well-developed patient, in no apparent distress. HEAD: normocephalic, atraumatic. EYES: PERRL. Sclera clear/white. Vision is grossly intact. EARS: External ears normal, auditory canals clear and without drainage, TMs normal without perforation. Hearing gr
[2020-07-15 14:00] VITALS: BP 159/105; PULSE 67; RESP 17; O2SAT 96
== END 2020-07-15 14:07 | disposition home or self-care (01) ==
PROVIDERS: Emergency Provider Nurse Practitioner; PCP Family Medicine
DX: S61.211A Laceration without foreign body of left index finger without damage to nail, initial encounter (principal); W27.2XXA Contact with scissors, initial encounter; Z86.73 Personal history of transient ischemic attack (TIA), and cerebral infarction without residual deficits; K21.9 Gastro-esophageal reflux disease without esophagitis; E78.5 Hyperlipidemia, unspecified; I10 Essential (primary) hypertension; M81.0 Age-related osteoporosis without current pathological fracture; D50.9 Iron deficiency anemia, unspecified
CPT/HCPCS: 12001; 99213; A9270; G0463

== ENCOUNTER 2020-08-18 08:54 | Emergency (ER) | payer OTHER, MEDICAID, SELFPAY ==
[2020-08-18] VITALS (10 sets, daily range): BP systolic 148–169; BP diastolic 78–118; PULSE 60–68; RESP 17–25; TEMP 36.7; O2SAT 96–100
--- NOTE | ~2020-08-18 | XR_ITS ---
EXAMINATION: XR chest 1V EXAM DATE: 08/18/2020 09:19 INDICATION: Dizziness. TECHNIQUE: Portable AP frontal chest x-ray was obtained. Comparison is made to prior examination from 06/19/2020. FINDINGS: Cardiac monitoring device. The lungs are clear. There are no pleural effusions. The cardi omediastinal silhouette is within normal limits. There is no pneumothorax suspected. There are mild bony degenerative changes. IMPRESSION: No acute cardiopulmonary findings. Reviewed, dictated and finalized at location B. WALL PLASTERER
--- NOTE | ~2020-08-18 | CT_ITS ---
EXAMINATION: CT brain wo con DATE: 08/18/2020 09:16 INDICATION: Altered mental status. Dizziness. TECHNIQUE: Computed tomography (CT) of the head was performed without intravenous contrast. The mA wa s adjusted according to patient size. Iterative reconstruction technique was employed. The dose-lengt h product was 529.67 mGy-cm. COMPARISON: Head CT 06/19/2020 FINDINGS: There are scattered areas of low attenuation in the cerebral white matter and bilateral bas al ganglia. There is no intracranial hemorrhage, acute infarction, or abnormal intracranial mass lesi on. The ventricles are normal in size. There is mild mucosal thickening in the paranasal sinuses. The mastoid air cells are normal. IMPRESSION: 1. Stable moderate nonspecific cerebral white matter disease and disease of the bilateral basal gangl ia, which likely represents chronic small vessel ischemic disease. Reviewed, dictated and finalized at location A. N EQUIPMENT SUPERVISOR IMPRESSION: 1. Stable moderate nonspecific cerebral white matter disease and disease of the bilateral basal ganglia, which likely represents chronic small vessel ischemic disease.
--- NOTE | 2020-08-18 09:00 | ECG_ITS ---
Measurements Intervals [facility] Rate: 68 P: 21 [place]: 194 QRS: -12 QRSD: 81 T: 5 QT: 382 QTc: 408 Interpretive Statements SINUS RHYTHM DELAYED PRECORDIAL R/S TRANSITION VOLTAGE CRITERIA FOR LVH BORDERLINE T WAVE ABNORMALITY- INFERIOR LEADS BASELINE ARTIFACT- I, II, AVR, AVF BORDERLINE ECG Electronically Signed On 08-18-2020 9:04:49 CARGO SERVICE SUPERVISOR by Lonnie Urbina D.O.
[2020-08-18 09:10] LABS: Glucose Point of Care 100 (65-105)
[2020-08-18 09:12] LABS: Basophils Percent Auto 0.8 % (0.2-1.2); Eosinophils Absolute Auto 0.1 K/mm3 (0-0.3); Eosinophils Percent Auto 1.1 % (0-4.4); Hematocrit 43.9 % (37.0-47.0); Hemoglobin 14.3 g/dL (12.0-15.0); Immature Granulocyte Absolute 0.02 K/mm3 (0.00-0.031); Immature Granulocyte Percent A 0.4 % (0-0.5); Lymphocytes Absolute Auto 1.09 K/mm3 (0.9-3.2); Lymphocytes Percent Auto 20.6 % (18.3-44.2); Mean Corpuscular HGB Conc 32.6 g/dl (32-36); Mean Corpuscular Hemoglobin 27.3 pg (26-34); Mean Corpuscular Volume 83.8 fl (80-100); Mean Platelet Volume 9.3 fl (7.4-10.4); Monocytes Absolute Auto 0.4 K/mm3 (0.1-0.6); Monocytes Percent Auto 7.7 % (2.6-8.5); Neutrophils Absolute Auto 3.7 K/mm3 (1.3-6.7); Neutrophils Percent Auto 69.4 % (45.5-73.1); Platelet Count Result 266 k/mm3 (150-375); Red Blood Count 5.24 M/mm3 (4.2-5.4); Red Cell Distribution Width 13.7 % (11.5-14.5); White Blood Count 5.3 K/mm3 (4.5-10.0)
[2020-08-18 09:23] LABS: INR 1.1; Prothrombin Time 14.3 Seconds (11.1-14.7)
[2020-08-18 09:24] LABS: Anion Gap 6 mmol/L (8-16); Blood Urea Nitrogen 14 mg/dL (7-17); Calcium 9.3 mg/dL (8.4-10.2); Carbon Dioxide 30 mmol/L (22-30); Chloride 102 mmol/L (98-107); Estimated Glomerular Filt Rate > 60; Glucose 109 mg/dL (65-105); Partial Thromboplastin Time 28.1 SECONDS (22.3-36.8); Potassium 4.2 mmol/L (3.4-5.0); Sodium 138 mmol/L (137-145)
[2020-08-18 09:31] LABS: Alanine Aminotransferase 21 U/L (4-35); Albumin Level 4.2 g/dL (3.5-5.1); Alkaline Phosphatase 72 U/L (38-126); Aspartate Amino Transferase 27 U/L (14-36); Bilirubin,Total 0.8 mg/dL (0.2-1.3)
[2020-08-18 09:35] LABS: Troponin I < 0.012 ng/mL (0.000-0.034)
--- NOTE | 2020-08-18 09:40 | ED.GENADULT ---
HPI - General Adult General Chief complaint: Neuro Symptoms/Deficit Stated complaint: ?TIA Time Seen by Provider: 08/18/20 09:14 Source: patient and family (daughter Sheila) Mode of arrival: EMS Limitations: no limitations History of Present Illness HPI narrative: Patient presents with chief complaint of few minutes of confusion where she was unable to tell the business continuity manager her room but she has been on for approximately 1 year. Patient states that she went out to use the handheld and was able unable to. This episode occurred at approximately 8 AM. Patient states she also felt a few minutes of dizziness. Patient denies any changes in vision or hearing, weakness to her extremities, slurred speech, chest pain or shortness of breath. Patient states she has a history of frequent TIAs. However her daughter state that the last episode was approximately 2 months ago when she had a neurologic work-up by her neurologist at [facility], they cannot recall the neurologist name at this time. They both state the neurologist decided to watch and wait regarding her TIA symptoms. Her daughter Sheila states that she has also has had recent monitoring to care by her petroleum products district supervisor due to her carotid rupture and they state that it is stable and they are monitoring it. She also has a heart monitoring device in her chest. Patient states that she has been in close contact with multiple providers. Patient is on Plavix and aspirin. Patient denies any symptoms at this time. She denies any changes in vision or hearing, weakness to her extremities, confusion, speech changes, dizziness, shortness of breath, chest pain, fever or chills. Patient states she has been eating and drinking normally and has not recently had any symptoms of illness. Related Data Home Medications Medication Instructions Recorded Confirmed albuterol sulfate 90 mcg/actuation 2 inhalation INHALATION Q4-6H PRN 07/22/19 08/04/20 breath activated powder inhaler fluticasone propionate 50 1 spray NASAL DAILY 07/22/19 08/04/20 mcg/actuation nasal spray,suspension carvedilol 3.125 mg tablet 3.125 mg PO Q12H 05/11/20 08/04/20 amlodipine 5 mg tablet 5 mg PO DAILY 08/04/20 08/04/20 ferrous sulfate 325 mg (65 mg 325 mg PO DAILY 08/04/20 08/04/20 iron) tablet Allergies Allergy/AdvReac Type Severity Reaction Status Date / Time famotidine Allergy Unknown Hives Verified 08/18/20 09:07 Review of Systems Review of Systems: Narrative: CONSTITUTIONAL: Denies fever, chills, or sweats. EYES: Denies visual changes, redness, or discharge. ENT: Denies rhinorrhea, congestion, sore throat, or otalgia. CARDIOVASCULAR: Denies chest pain, palpitations, or edema. RESPIRATORY: Denies cough or dyspnea. GASTROINTESTINAL: Denies abdominal pain, nausea, vomiting, or diarrhea. GENITOURINARY: Denies dysuria or hematuria. SKIN: Denies rash or itching. MUSCULOSKELETAL: Denies back pain, joint pain, or myalgia. NEUROLOGIC: Reports transient memory confusion and dizziness denies headache, numbness, speech changes, or weakness. PSYCHIATRIC: Denies anxiety or depression. [facility] Past Medical History Medical History (Updated 08/18/20 @ 11:25 by Vijay Briones PA-C) Cerebrovascular accident Initially with left side weakness, now without any significant deficit. Chronic obstructive pulmonary disease Colon polyps Diverticulosis Esophageal ulcer without bleeding (~03/26/20) Gastroesophageal reflux disease Hiatal hernia Hyperlipidemia Hypertension No longer on medication. Iron deficiency anemia Osteoporosis Surgical History Surgical History History of appendectomy History of hysterectomy with oophorectomy History of tonsillectomy Status post right foot surgery (~02/2017) Bilateral bunionectomy and arthroplasty of several digits. Family History Family History Mother Diabetes mellitus Hypertension F
[2020-08-18 10:00] LABS: Add Urine Microscopic? NO; Appearance Urine Clear (Clear); Bilirubin Urine Negative (Negative); Blood Urine Negative (Negative); Color Urine Yellow (Yellow); Glucose Urine UA Negative (Negative); Ketones Urine Negative (Negative); Leukocyte Esterase Ur Negative LEU/UL (Negative); Nitrate Urine Negative (Negative); Protein Urine Negative (Negative); Specific Grav Ur 1.018 (1.001-1.035); Urobilinogen Urine Negative mg/dL (<2.0)
== END 2020-08-18 11:55 | disposition home or self-care (01) ==
PROVIDERS: Physician Assistant; Emergency Provider Emergency Medicine; PCP Family Medicine
DX: R41.0 Disorientation, unspecified (principal); R42 Dizziness and giddiness; Z86.73 Personal history of transient ischemic attack (TIA), and cerebral infarction without residual deficits; J44.9 Chronic obstructive pulmonary disease, unspecified; Z86.010 Personal history of colon polyps; K21.9 Gastro-esophageal reflux disease without esophagitis; E78.5 Hyperlipidemia, unspecified; M81.0 Age-related osteoporosis without current pathological fracture; D50.9 Iron deficiency anemia, unspecified; I77.2 Rupture of artery; Z79.02 Long term (current) use of antithrombotics/antiplatelets; Z79.82 Long term (current) use of aspirin; R94.31 Abnormal electrocardiogram [ECG] [EKG]
CPT/HCPCS: 36415; 70450; 71045; 80053; 81003; 82948; 84484; 85025; 85610; 85730; 93005; 99284

== ENCOUNTER 2021-01-07 12:16 | Emergency (ER) | payer OTHER, MEDICAID, SELFPAY ==
--- NOTE | ~2021-01-07 | CT_ITS ---
EXAMINATION: CT abdomen pelvis w con DATE: 01/07/2021 16:21 INDICATION: Flank pain. TECHNIQUE: Computed tomography (CT) of the abdomen and pelvis was performed with 100 mL Omnipaque 350 intravenous contrast. Automated exposure control and iterative reconstruction technique were employe d. The dose-length product was 699.19 mGy-cm. COMPARISON: CT abdomen and pelvis 04/12/2008 FINDINGS: The visualized portions of the lung bases demonstrate mild atelectasis. No pleural effusion . The heart size is normal. There are coronary artery calcifications. No pericardial effusion. There is a moderate-sized sliding hiatal hernia. There is a chronic 12 mm hyperenhancing mass in left hepat ic lobe, likely a hemangioma or focal nodular hyperplasia. The gallbladder, spleen, pancreas, adrenal glands, and right kidney are normal. There is a 13 mm cyst in left kidney. There is diverticulosis o f the colon without evidence of diverticulitis. There are no dilated loops of bowel. The appendix is not visualized. There are no pathologically enlarged lymph nodes. There is no free intraperitoneal fl uid. There are chronic bilateral L5 pars defects. There is 5 mm anterolisthesis of L5 on S1. There is severe thoracic and lumbar spondylosis. IMPRESSION: 1. Moderate-sized sliding hiatal hernia. Reviewed, dictated and finalized at location A.
[2021-01-07 12:28] VITALS: BP 118/68; PULSE 71; RESP 16; TEMP 36.9; O2SAT 100
[2021-01-07 13:33] LABS: Bilirubin Urine Negative (Negative); Blood Urine 3+ (Negative); Color Urine Yellow (Yellow); Glucose Urine UA Negative (Negative); Ketones Urine Negative (Negative); Leukocyte Esterase Ur 1+ LEU/UL (Negative); Nitrate Urine Negative (Negative); Protein Urine 1+ mg/dL (Negative); Specific Grav Ur >= 1.030 (1.001-1.035); Urobilinogen Urine 0.2 mg/dL (<2.0)
[2021-01-07 13:38] LABS: Add Urine Microscopic? YES; Appearance Urine Sl Cloudy (Clear)
[2021-01-07 14:03] LABS: Calcium Oxalate Crystals Urine Present /hpf
[2021-01-07 14:05] LABS: RBC Urine 0-2 /hpf (0-2); Squamous Epithelial Cell Urine Many /hpf (Few)
[2021-01-07 14:06] LABS: Bacteria Urine 1+ /hpf
[2021-01-07 15:12] VITALS: TEMP 37
[2021-01-07 15:13] VITALS: BP 139/81; PULSE 67; RESP 15; O2SAT 100
--- NOTE | 2021-01-07 15:22 | ED.FEMALEGU ---
HPI - Female Genitourinary General Chief complaint: Urogenital-Female Stated complaint: flank pain Time Seen by Provider: 01/07/21 15:21 Source: patient Mode of arrival: ambulatory Limitations: no limitations History of Present Illness HPI Narrative: Patient is a 70-year-old female who presents for evaluation of left flank pain as well as dysuria and frequency. Patient states symptoms have been worsening over the past 2 to 3 days. Initially started as dysuria, now with urgency and frequency. No known history of kidney stones although she does report left-sided flank pain which is dull and aching in nature. Patient denies fever, chills, nausea or vomiting. No vaginal bleeding. No frontal or upper abdominal pain. No chest pain, cough or shortness of breath. No exacerbating or relieving factors. Patient states that she did have a ground-level, mechanical fall yesterday, but did not hurt her back. Patient has been ambulatory without numbness or weakness. Related Data Home Medications Medication Instructions Recorded Confirmed carvedilol 3.125 mg tablet 3.125 mg PO Q12H 05/11/20 11/09/20 ferrous sulfate 325 mg (65 mg 325 mg PO DAILY 08/04/20 11/09/20 iron) tablet amlodipine 5 mg tablet 5 mg PO DAILY 08/20/20 11/09/20 fluticasone propionate See Rx Instructions .ROUTE 10/23/20 11/09/20 .COMPLEX PRN lansoprazole 30 mg PO DAILY 10/23/20 11/09/20 Allergies Allergy/AdvReac Type Severity Reaction Status Date / Time famotidine Allergy Severe Hives Verified 11/09/20 15:02 Review of Systems Review of Systems: Narrative: CONSTITUTIONAL: Denies fever, chills, or sweats. EYES: Denies visual changes, redness, or discharge. ENT: Denies rhinorrhea, congestion, sore throat, or otalgia. CARDIOVASCULAR: Denies chest pain, palpitations, or edema. RESPIRATORY: Denies cough or dyspnea. GASTROINTESTINAL: Denies abdominal pain, nausea, vomiting, or diarrhea. Reports left flank pain. GENITOURINARY: Reports dysuria, urgency, frequency SKIN: Denies rash or itching. MUSCULOSKELETAL: Denies midline back pain, joint pain, or myalgia. NEUROLOGIC: Denies headache, numbness, or weakness. PMFSH Past Medical History Medical History (Updated 01/07/21 @ 16:45 by Haley West MD) Cerebrovascular accident Initially with left side weakness, now without any significant deficit. Chronic obstructive pulmonary disease Colon polyps Diverticulosis Esophageal ulcer without bleeding (~03/26/20) Gastroesophageal reflux disease Hiatal hernia Hyperlipidemia Hypertension No longer on medication. Iron deficiency anemia Osteoporosis Surgical History Surgical History History of appendectomy History of hysterectomy with oophorectomy History of tonsillectomy Status post right foot surgery (~02/2017) Bilateral bunionectomy and arthroplasty of several digits. Family History Family History Mother Diabetes mellitus Hypertension Family history of cardiovascular disease Father Diabetes mellitus Family history of Parkinson's disease Family history of Alzheimer's disease Grandparent Family history of arthritis Social History Social History Social History: Surrogate decision maker: Sheila Goetz, daughter. Code status: Full code. Smoking packs per day: 3 Smoking cigarettes per day: 60.0 Years smoked: 40 Smoking pack-years: 120.00 Smoking status: Never smoker Tobacco type: cigarettes Second hand tobacco smoke exposure: No Alcohol intake: never Substance use: never Substance use type: does not use Additional living arrangements comments: Lives with her 3 cats in [place]. 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 Gender identity (if verbalized by the patient): Female Spiritual care concerns: No Agree to blo
[2021-01-07 15:35] LABS: Basophils Absolute Auto 0.1 K/mm3 (0.0-0.1); Basophils Percent Auto 1.1 % (0.2-1.2); Eosinophils Absolute Auto 0.2 K/mm3 (0-0.3); Eosinophils Percent Auto 3.8 % (0-4.4); Hematocrit 44.2 % (37.0-47.0); Hemoglobin 14.3 g/dL (12.0-15.0); Immature Granulocyte Absolute 0.02 K/mm3 (0.00-0.031); Immature Granulocyte Percent A 0.4 % (0-0.5); Lymphocytes Absolute Auto 1.52 K/mm3 (0.9-3.2); Lymphocytes Percent Auto 27.5 % (18.3-44.2); Mean Corpuscular HGB Conc 32.4 g/dl (32-36); Mean Corpuscular Hemoglobin 28.1 pg (26-34); Mean Platelet Volume 9.3 fl (7.4-10.4); Monocytes Absolute Auto 0.6 K/mm3 (0.1-0.6); Monocytes Percent Auto 10.9 % (2.6-8.5); Neutrophils Absolute Auto 3.1 K/mm3 (1.3-6.7); Neutrophils Percent Auto 56.3 % (45.5-73.1); Platelet Count Result 278 k/mm3 (150-375); Red Blood Count 5.08 M/mm3 (4.2-5.4); Red Cell Distribution Width 13.7 % (11.5-14.5); White Blood Count 5.5 K/mm3 (4.5-10.0)
[2021-01-07 15:47] LABS: Anion Gap 10 mmol/L (8-16); Blood Urea Nitrogen 20 mg/dL (7-17); Calcium 9.4 mg/dL (8.4-10.2); Carbon Dioxide 27 mmol/L (22-30); Chloride 106 mmol/L (98-107); Estimated Glomerular Filt Rate > 60; Glucose 105 mg/dL (65-105); Sodium 143 mmol/L (137-145)
[2021-01-07] MEDS: ACETAMINOPHEN 500 MG TABLET 1000 MG PO (15:56)
[2021-01-07] MEDS: ONDANSETRON INJ 4 MG/2 ML VIAL IV PUSH (15:57)
[2021-01-07] MEDS: SODIUM CHLORIDE 0.9% IV 1,000 ML 999 ML IV CONT (15:57)
[2021-01-07 17:22] VITALS: BP 136/80; PULSE 78; RESP 14; O2SAT 98
== END 2021-01-07 17:38 | disposition home or self-care (01) ==
PROVIDERS: Emergency Provider Emergency Medicine; PCP Family Medicine
DX: N10 Acute pyelonephritis (principal); J44.9 Chronic obstructive pulmonary disease, unspecified; K21.9 Gastro-esophageal reflux disease without esophagitis; M81.0 Age-related osteoporosis without current pathological fracture; D50.9 Iron deficiency anemia, unspecified; E78.5 Hyperlipidemia, unspecified; K57.90 Diverticulosis of intestine, part unspecified, without perforation or abscess without bleeding; F17.210 Nicotine dependence, cigarettes, uncomplicated; Z86.73 Personal history of transient ischemic attack (TIA), and cerebral infarction without residual deficits; Z86.010 Personal history of colon polyps; K44.9 Diaphragmatic hernia without obstruction or gangrene
CPT/HCPCS: 36415; 74177; 80048; 81001; 85025; 96374; 96375; 99284; A9270; J0696; J2405; J7030; Q9967

== ENCOUNTER 2022-06-28 10:37 | Outpatient (CLI) | payer MEDICARE, SELFPAY ==
[2022-06-28 11:09] LABS: Hematocrit 47.2 % (37.0-47.0); Hemoglobin 15.3 g/dL (12.0-15.0)
[2022-06-28 11:16] LABS: Alanine Aminotransferase 56 U/L (6-35); Albumin Level 4.5 g/dL (3.5-5.1); Alkaline Phosphatase 62 U/L (38-126); Anion Gap 11 mmol/L (8-16); Aspartate Amino Transferase 51 U/L (14-36); Bilirubin,Total 0.5 mg/dL (0.2-1.3); Blood Urea Nitrogen 17 mg/dL (7-17); Calcium 9.3 mg/dL (8.4-10.2); Carbon Dioxide 28 mmol/L (22-30); Chloride 103 mmol/L (98-107); Cholesterol 116 mg/dL (0-200); Estimated Glomerular Filt Rate > 60; Glucose 124 mg/dL (65-110); HDL Direct 42 mg/dL; Potassium 3.9 mmol/L (3.4-5.0); Sodium 142 mmol/L (137-145); Triglycerides 118 mg/dL (<150)
[2022-06-28 11:30] LABS: LDL Cholesterol Direct 50 mg/dL
== END 2022-06-28 10:38 | disposition home or self-care (01) ==
PROVIDERS: PCP Internal Medicine; Visit Provider Internal Medicine
DX: E78.5 Hyperlipidemia, unspecified (principal); I10 Essential (primary) hypertension; E53.8 Deficiency of other specified B group vitamins; D64.9 Anemia, unspecified
CPT/HCPCS: 36415; 80053; 80061; 82607; 85014; 85018

== ENCOUNTER 2022-11-17 09:43 | Emergency (ER) | payer MEDICARE, SELFPAY ==
--- NOTE | ~2022-11-17 | XR_ITS ---
XR foot LT min 3V 11/17/2022 11:01 Indication: Pain and swelling of the second, third and fifth toes after injury Procedure: 4 views left foot Comparison: No prior studies for comparison. Findings: There is hallux valgus. There is polyarticular osteoarthritis. There is a degenerative calc aneal enthesophyte. There is a nondisplaced extra-articular fracture of the fifth proximal phalanx. Impression: 1: Nondisplaced extra-articular fracture left fifth proximal phalanx. Reviewed, dictated and finalized at location L. Impression: 1: Nondisplaced extra-articular fracture left fifth proximal phalanx.
[2022-11-17 09:47] VITALS: BP 128/83; PULSE 88; RESP 18; TEMP 36.4; O2SAT 97
--- NOTE | 2022-11-17 10:41 | ED.EXTPRO ---
HPI - Extremity Problem General Chief complaint: Extremity Problem,Nontraumatic Stated complaint: swollen toe Time Seen by Provider: 11/17/22 10:28 History of Present Illness HPI Narrative: Patient is a 72-year-old female here for evaluation of left foot and toe pain for the past 2 weeks. Patient states that she was sleeping in her recliner and when she woke up the foot of the recliner dragged across the top of her foot. She has had pain and swelling since. States that she has been able to walk on the foot but it is painful. Over the past 3 days she reports that her left fifth toe has become numb and tingly which prompted her ED evaluation today. She is only taking Tylenol for pain. No further injury sustained in the accident. Related Data Home Medications Medication Instructions Recorded Confirmed fluticasone propionate 50 See Rx Instructions .Route 10/23/20 07/19/22 mcg/actuation nasal .COMPLEX PRN Allergy Symptoms spray,suspension Allergies Allergy/AdvReac Type Severity Reaction Status Date / Time famotidine Allergy Severe Hives Verified 11/17/22 10:37 mold Allergy Unknown Verified 11/17/22 10:37 Review of Systems Review of Systems: Gen.: Denies fevers or chills Eyes: Denies eye pain or visual change ENT: Denies congestion Respiratory: Denies shortness of breath or cough CV: Denies chest pain or palpitations GI: Denies abdominal pain nausea, emesis or diarrhea denies burning, urgency, frequency or hematuria Musculoskeletal: Reports left foot pain Neuro: Denies numbness, tingling, weakness or focal weakness Skin: Denies rash Except as documented, all other systems reviewed and negative [facility] Past Medical History Medical History Cerebrovascular accident Initially with left side weakness, now without any significant deficit. Change in weight Chronic obstructive pulmonary disease Colon polyps Difficulty breathing Diverticulosis Edema Esophageal ulcer without bleeding (~03/26/20) Gastroesophageal reflux disease Hiatal hernia History of CVA (cerebrovascular accident) Hyperlipidemia Hypertension Iron deficiency anemia Osteoporosis Snoring Surgical History Surgical History History of appendectomy History of hysterectomy with oophorectomy History of loop recorder History of tonsillectomy Status post right foot surgery (~02/2017) Bilateral bunionectomy and arthroplasty of several digits. Family History Family History Mother Diabetes mellitus Hypertension Family history of cardiovascular disease Father Diabetes mellitus Family history of Parkinson's disease Family history of Alzheimer's disease Grandparent Family history of arthritis Daughter Asthma Migraine Social History Social History (Updated 07/19/22 @ 12:46 by Nancy Lee) Social History: Surrogate decision maker: Sheila Goetz, daughter. Code status: Full code. Smoking packs per day: 3 Smoking cigarettes per day: 60.0 Years smoked: 40 Smoking pack-years: 120.00 Smoking status: Former smoker Tobacco type: cigarettes Second hand tobacco smoke exposure: No Smoking end date: 09/07/99 Alcohol intake: never Substance use: never Substance use type: does not use Lack of Transportation: No Lack of Food: Never True Current Housing: I Have Housing Concerned About Future Housing: No Difficulty Paying Gas/Electric Bills: No Difficulty Paying for Meds: No Currently Unemployed: No Education: Don't Know Difficulty w/ Childcare or Family Care: No Living arrangements: assisted living Additional living arrangements comments: Lives in assisted living at [facility] Occupation/Education: retired Gender identity (if verbalized by the patient): Female Spiritual care concerns: No Agree to blood products
== END 2022-11-17 11:27 ==
PROVIDERS: Emergency Provider Physician Assistant
DX: S92.515A Nondisplaced fracture of proximal phalanx of left lesser toe(s), initial encounter for closed fracture (principal); J44.9 Chronic obstructive pulmonary disease, unspecified; E78.5 Hyperlipidemia, unspecified; I10 Essential (primary) hypertension; D50.9 Iron deficiency anemia, unspecified; K21.9 Gastro-esophageal reflux disease without esophagitis; M81.0 Age-related osteoporosis without current pathological fracture; Z86.73 Personal history of transient ischemic attack (TIA), and cerebral infarction without residual deficits; Z86.010 Personal history of colon polyps; Z87.891 Personal history of nicotine dependence; Z90.710 Acquired absence of both cervix and uterus; W22.8XXA Striking against or struck by other objects, initial encounter
CPT/HCPCS: 73630; 99284

== ENCOUNTER 2022-12-15 08:59 | Outpatient (CLI) | payer MEDICARE, SELFPAY ==
[2022-12-15 09:37] LABS: Basophils Percent Auto 0.7 % (0.2-1.2); Eosinophils Absolute Auto 0.2 K/mm3 (0-0.3); Eosinophils Percent Auto 3.4 % (0-4.4); Hematocrit 47.7 % (37.0-47.0); Hemoglobin 15.5 g/dL (12.0-15.0); Immature Granulocyte Absolute 0.01 K/mm3 (0.00-0.031); Immature Granulocyte Percent A 0.2 % (0-0.5); Lymphocytes Absolute Auto 1.13 K/mm3 (0.9-3.2); Mean Corpuscular HGB Conc 32.5 g/dl (32-36); Mean Corpuscular Hemoglobin 28.2 pg (26-34); Mean Corpuscular Volume 86.9 fl (80-100); Mean Platelet Volume 10.1 fl (7.4-10.4); Monocytes Absolute Auto 0.4 K/mm3 (0.1-0.6); Neutrophils Absolute Auto 3.6 K/mm3 (1.3-6.7); Neutrophils Percent Auto 66.7 % (45.5-73.1); Platelet Count Result 284 k/mm3 (150-375); Red Blood Count 5.49 M/mm3 (4.2-5.4); Red Cell Distribution Width 13.5 % (11.5-14.5); White Blood Count 5.4 K/mm3 (4.5-10.0)
[2022-12-15 09:48] LABS: Alanine Aminotransferase 54 U/L (6-35); Albumin Level 4.6 g/dL (3.5-5.1); Alkaline Phosphatase 73 U/L (38-126); Anion Gap 10 mmol/L (8-16); Aspartate Amino Transferase 49 U/L (14-36); Bilirubin,Total 0.6 mg/dL (0.2-1.3); Blood Urea Nitrogen 13 mg/dL (7-17); Calcium 9.3 mg/dL (8.4-10.2); Carbon Dioxide 27 mmol/L (22-30); Chloride 103 mmol/L (98-107); Cholesterol 127 mg/dL (0-200); Estimated Glomerular Filt Rate > 60; Glucose 113 mg/dL (65-110); HDL Direct 44 mg/dL; Potassium 4.1 mmol/L (3.4-5.0); Sodium 140 mmol/L (137-145); Triglycerides 131 mg/dL (<150)
[2022-12-15 09:51] LABS: Appearance Urine Cloudy (Clear); Bacteria Urine 1+ /hpf; Bilirubin Urine Negative (Negative); Blood Urine Negative (Negative); Color Urine Dark Yellow (Yellow); Glucose Urine UA Negative (Negative); Ketones Urine Negative (Negative); Leukocyte Esterase Ur Trace LEU/UL (NEGATIVE); Nitrate Urine Negative (Negative); Non Pathogenic Casts 0-2; Protein Urine Negative (Negative); Specific Grav Ur 1.023 (1.001-1.035); Squamous Epithelial Cell Urine Many /hpf (Few); WBC Urine 0-5 /hpf (0-3)
[2022-12-15 09:59] LABS: LDL Cholesterol Direct 58 mg/dL
[2022-12-15 10:00] LABS: Add Urine Microscopic? YES
[2022-12-15 10:06] LABS: Hemoglobin A1C 5.9 % (<5.7)
[2022-12-15 10:22] LABS: Iron 114 ug/dL (37-170)
[2022-12-15 10:35] LABS: Percent Iron Saturation 31 % (20-50)
== END 2022-12-15 09:00 | disposition home or self-care (01) ==
PROVIDERS: PCP Family Medicine; Visit Provider Nurse Practitioner Family
DX: R73.01 Impaired fasting glucose (principal); N39.0 Urinary tract infection, site not specified; D50.9 Iron deficiency anemia, unspecified; I10 Essential (primary) hypertension; D64.9 Anemia, unspecified; E78.5 Hyperlipidemia, unspecified; R53.83 Other fatigue; E53.8 Deficiency of other specified B group vitamins
CPT/HCPCS: 36415; 80053; 80061; 81001; 82607; 83036; 83540; 83550; 84443; 85025; 87086; 87088

== ENCOUNTER 2023-04-26 10:04 | Outpatient (CLI) | payer MEDICARE, MEDICAID, SELFPAY ==
[2023-04-26 10:54] LABS: Basophils Absolute Auto 0.1 K/mm3 (0.0-0.1); Basophils Percent Auto 1.1 % (0.2-1.2); Eosinophils Absolute Auto 0.2 K/mm3 (0-0.3); Hematocrit 45.9 % (37.0-47.0); Hemoglobin 14.7 g/dL (12.0-15.0); Immature Granulocyte Absolute 0.02 K/mm3 (0.00-0.031); Immature Granulocyte Percent A 0.4 % (0-0.5); Lymphocytes Absolute Auto 0.99 K/mm3 (0.9-3.2); Lymphocytes Percent Auto 17.5 % (18.3-44.2); Mean Corpuscular Hemoglobin 28.2 pg (26-34); Mean Corpuscular Volume 87.9 fl (80-100); Mean Platelet Volume 10.2 fl (7.4-10.4); Monocytes Absolute Auto 0.4 K/mm3 (0.1-0.6); Monocytes Percent Auto 7.4 % (2.6-8.5); Neutrophils Percent Auto 70.6 % (45.5-73.1); Platelet Count Result 302 k/mm3 (150-375); Red Blood Count 5.22 M/mm3 (4.2-5.4); Red Cell Distribution Width 13.2 % (11.5-14.5); White Blood Count 5.7 K/mm3 (4.5-10.0)
[2023-04-26 11:01] LABS: Appearance Urine Clear (Clear); Bacteria Urine None Seen /hpf; Bilirubin Urine Negative (Negative); Blood Urine Negative (Negative); Color Urine Yellow (Yellow); Glucose Urine UA Negative (Negative); Ketones Urine Trace mg/dL (Negative); Leukocyte Esterase Ur Trace LEU/UL (NEGATIVE); Nitrate Urine Negative (Negative); Non Pathogenic Casts 0-2; Protein Urine Negative (Negative); RBC Urine 0-2 /hpf (0-2); Specific Grav Ur 1.025 (1.001-1.035); Squamous Epithelial Cell Urine Few /hpf (Few); WBC Urine 0-5 /hpf (0-3)
[2023-04-26 11:10] LABS: Add Urine Microscopic? YES
[2023-04-26 11:11] LABS: Alanine Aminotransferase 45 U/L (6-35); Alkaline Phosphatase 65 U/L (38-126); Anion Gap 6 mmol/L (8-16); Aspartate Amino Transferase 49 U/L (14-36); Bilirubin,Total 0.5 mg/dL (0.2-1.3); Blood Urea Nitrogen 15 mg/dL (7-17); Calcium 9.3 mg/dL (8.4-10.2); Carbon Dioxide 31 mmol/L (22-30); Chloride 104 mmol/L (98-107); Estimated Glomerular Filt Rate > 60; Glucose 105 mg/dL (65-110); Potassium 3.9 mmol/L (3.4-5.0); Sodium 141 mmol/L (137-145)
[2023-04-26 13:14] LABS: Hemoglobin A1C 5.8 % (<5.7)
== END 2023-04-26 10:05 | disposition home or self-care (01) ==
PROVIDERS: PCP Nurse Practitioner Family; Visit Provider Nurse Practitioner Family
DX: D64.9 Anemia, unspecified (principal); R44.1 Visual hallucinations; Z86.73 Personal history of transient ischemic attack (TIA), and cerebral infarction without residual deficits; R73.01 Impaired fasting glucose; R39.9 Unspecified symptoms and signs involving the genitourinary system
CPT/HCPCS: 36415; 80053; 81001; 83036; 85025; 87086; 87088

== ENCOUNTER 2024-02-20 13:53 | Outpatient (CLI) | payer MEDICARE, MEDICAID, SELFPAY ==
--- NOTE | ~2024-02-20 | CT_ITS ---
CT brain wo con Ordering provider: Krystyna Finney APRN History: 73 years Female with . G45.9 - Transient cerebral ischemic attack, unspecified . Comparison: August 18, 2020 Technique: CT of the head without contrast. Radiation reduction technique utilized. DLP is 605.33 mGy=cm. FINDINGS: BRAIN PARENCHYMA AND CSF SPACES: Mild leukoaraiosis and diffuse cortical atrophy. Mild atheromatous d isease. No midline shift, mass effect or hemorrhage. The brain parenchyma and CSF spaces are otherwi se normal. VISUALIZED PARANASAL SINUSES: Well aerated. MASTOIDS: Well aerated. BONES: The bones appear intact. SOFT TISSUES: Visualized nasopharynx is normal. Superficial soft tissues are normal. IMPRESSION: No acute intracranial findings. Reviewed, dictated and finalized at location A.
== END 2024-02-20 13:54 | disposition home or self-care (01) ==
PROVIDERS: PCP Nurse Practitioner Family; Visit Provider Nurse Practitioner Family
DX: G45.9 Transient cerebral ischemic attack, unspecified (principal)
CPT/HCPCS: 70450

== ENCOUNTER 2024-08-28 10:50 | Emergency (ER) | payer MEDICARE, MEDICAID, SELFPAY ==
[2024-08-28] VITALS (11 sets, daily range): BP systolic 105–143; BP diastolic 68–94; PULSE 60–76; RESP 16–20; TEMP 36.6–36.8; O2SAT 95–100
--- NOTE | ~2024-08-28 | CT_ITS ---
EXAMINATION: CT abd pelvis lumbar wo con DATE: 08/28/2024 12:31 INDICATION: Left lower quadrant abdominal pain and low back pain TECHNIQUE: Computed tomography (CT) of the abdomen, pelvis and lumbar spine was performed without int ravenous contrast. Automated exposure control and iterative reconstruction technique were employed. T he dose-length product was 808.48 mGy-cm. COMPARISON: None FINDINGS: Abdomen and pelvis: Mild discoid atelectasis at the lingula. Heart size is normal. Small amount of sclerotic coronary art ki calcium location and aortic valve cast dictation. No pericardial or pleural effusion. Moderate-si zed sliding-type hiatal hernia. Liver, gallbladder, spleen, pancreas and bilateral adrenal glands are normal. Kidneys and ureters are normal with no urolithiasis, hydroureteronephrosis or perinephric/ur eteral stranding. Moderate sigmoid diverticulosis without adjacent from trace stranding to suggest di verticulitis. No bowel obstruction. The appendix is not visualized. No pericecal inflammatory change to suggest acute appendicitis. The uterus is not identified and there are suture lines at the bilater al adnexal regions consistent with prior hysterectomy and possible bilateral oophorectomy. No free in traperitoneal gas or fluid. No pathologically enlarged abdominal or pelvic lymphadenopathy. Lumbar spine: Chronic L5 spondylolysis with bilateral pars intra-articular is defects and 6 mm anterolisthesis L5 o n S1. There is severe associated disc height loss with degenerative endplate changes. Mild thoracolum bar dextrocurvature. Vertebral body heights are normal. There is additional moderate to severe disc h eight loss at L3-L4, moderate disc height loss at L1-L2 and mild disc height loss at L2-L3. Disc bulg e contributing to mild central canal stenosis at L3-L4. There is moderate neural from stenosis on the left at L5-S1, moderate to severe on the right at L5-S1. There is mild neural from stenosis at a few additional more cephalad neural foramina. Additional moderate to severe lower thoracic spondylosis. IMPRESSION: 1. No urolithiasis or acute intra-abdominal/pelvic process. 2. Moderate-sized hiatal hernia. 3. Moderate sigmoid diverticulosis. 4. Moderate to severe lumbar and lower thoracic spondylosis as well as L5 spondylolysis with chronic bilateral pars interarticularis defects and 6 mm anterolisthesis L5 on S1. Reviewed, dictated and finalized at location A. ATTENDANT IMPRESSION: 1. No urolithiasis or acute intra-abdominal/pelvic process. 2. Moderate-sized hiatal hernia. 3. Moderate sigmoid diverticulosis. 4. Moderate to severe lumbar and lower thoracic spondylosis as well as L5 spond ylolysis with chronic bilateral pars interarticularis defects and 6 mm anteroli sthesis L5 on S1.
--- NOTE | 2024-08-28 12:21 | ED.BACK ---
HPI - Back Pain/Injury General Chief Complaint: Back Pain/Injury Stated Complaint: L BACK PAIN X4D Time Seen by Provider: 08/28/24 11:20 Source: patient Mode of arrival: ambulatory Limitations: no limitations History of Present Illness HPI Narrative: Patient is a 73-year-old female who presents the ED with report of lower back pain. Patient is a resident of [facility]. Patient reports pain has been ongoing for the last week or so, but has become worse over the last couple of days. Present throughout her lower back, does radiate around to her left lower abdomen. Pain is worse with movement. Denies any recent fall or injury. She does note that her urine has been dark over the last few days, with intermittent dysuria. Denies hematuria. Denies known history of kidney stones. Denies nausea, vomiting, fevers, numbness, saddle anesthesia, bowel or bladder incontinence, weakness of lower extremities. Related Data Allergies Allergy/AdvReac Type Severity Reaction Status Date / Time famotidine Allergy Severe Hives Verified 08/28/24 10:51 mold Allergy Unknown Verified 08/28/24 10:51 Review of Systems Review of Systems: All systems reviewed & are unremarkable except as noted in HPI. All systems reviewed & are unremarkable except as noted in HPI and below PMFSH Past Medical History Medical History History of carotid artery dissection History of CVA (cerebrovascular accident) Difficulty breathing Snoring Change in weight Edema Carotid artery dissection Iron deficiency anemia Colon polyps Diverticulosis Esophageal ulcer without bleeding (~03/26/20) Hiatal hernia Gastroesophageal reflux disease Hyperlipidemia Hypertension Cerebrovascular accident Initially with left side weakness, now without any significant deficit. Chronic obstructive pulmonary disease Osteoporosis Surgical History Surgical History History of loop recorder History of appendectomy Status post right foot surgery (~02/2017) Bilateral bunionectomy and arthroplasty of several digits. per pt metal in foot History of hysterectomy with oophorectomy History of tonsillectomy Family History Family History Mother Diabetes mellitus Hypertension Family history of cardiovascular disease Father Diabetes mellitus Family history of Parkinson's disease Family history of Alzheimer's disease Grandparent Family history of arthritis Daughter Asthma Migraine Social History Social History Social History: Surrogate decision maker: Sheila Goetz, daughter. Code status: Full code. Smoking packs per day: 3 Smoking cigarettes per day: 60.0 Years smoked: 40 Smoking pack-years: 120.00 Smoking status: Former smoker Tobacco type: cigarettes Second hand tobacco smoke exposure: No Smoking end date: 09/07/99 Alcohol intake: never Substance use: never Substance use type: does not use Lack of Transportation: No Lack of Food: Never True Current Housing: I Have Housing Concerned About Future Housing: No Difficulty Paying Gas/Electric Bills: No Difficulty Paying for Meds: No Currently Unemployed: No Education: Don't Know Difficulty w/ Childcare or Family Care: No Living arrangements: assisted living Additional living arrangements comments: Lives in assisted living at [facility] Occupation/Education: retired Gender identity (if verbalized by the patient): Female Spiritual care concerns: No Agree to blood products: Yes Exam Narrative: GENERAL: Well appearing, obese with BMI of 38.0, non-toxic, in no acute distress. HEAD: Normocephalic, atraumatic. RESPIRATORY: Airway patent, respirations nonlabored. Clear to auscultation bilaterally, no rales, rhonchi, wheezing. CARDIOVASCULAR: Regular rate and rhythm without murmurs, rubs, or gallops. ABDOMINAL: Soft, mild tenderness to palpation in bilateral lower quadrants, nondistended. Normoactive BS. MUSCULOSKELETAL: Moves all extremities. No gross deformities. TTP throughout upper lumbar region, some tenderness throughout midline spine and jaime paraspinal musculature. Sensation intact. No palpable bony deformities or step-offs. SKIN: Warm, dry, normal color. NEURO: A&O X3. Speech clear. Cranial nerves II-XII grossly intact. Steady gait. No ataxic movements. No focal deficits. PSYCHIATRIC: Appropriate mood and affect. Normal interaction. Course Vital Signs Vital signs: Vital Signs Temperature 97.8 F 08/28/24 11:05 Pulse Rate 76 08/28/24 11:05 Respiratory Rate 16 08/28/24 11:05 Blood Pressure 143/83 H 08/28/24 11:05 Pulse Oximetry 99 08/28/24 11:05 Oxygen Delivery Room Air 08/28/24 11:05 Temperature 98.2 F 08/28/24 15:19 Pulse Rate 67 08/28/24 15:19 Respiratory Rate 20 08/28/24 15:19 Blood Pressure 131/94 H 08/28/24 15:19 Pulse Oximetry 97 08/28/24 15:19 Oxygen Delivery Room Air 08/28/24 11:05 MDM - Back Pain/Injury MDM Narrative Medical decision making narrative: Patient presented to ED with week history of lower back pain, lower abdominal pain. Vital signs are stable upon arrival. Patient is in no acute distress. She is neurologically intact. No evidence of cord compression or cauda equina on exam. Denying any red flag symptoms. Laboratory studies were obtained and unremarkable. No significant abnormalities. UA w/o signs of infection. CT scan of abdomen/pelvis/lumbar spine was obtained and showing diverticulosis, hiatal hernia, lumbar/thoracic spondylosis. No acute findings. There is 1 level of mild central canal stenosis. No acute fracture. Patient updated on lab and imaging results. She is feeling improved with supportive therapy. Still having some pain. Will attempt additional pain control. Patient feeling improved on re-evaluation. Feels comfortable discharge home at this time. Discussed likelihood of musculoskeletal etiology, lumbar strain. Discussed continued management of such, will prescribe short course of tramadol and muscle relaxers for home. Advised patient to continue Tylenol, ice/heat. Recommended close follow-up with PCP for further evaluation. Given strict return precautions. Patient voiced understanding and is in agreement with plan. Discharged in stable condition. Differential Diagnosis Differential diagnosis: Likely lumbar radiculopathy, sciatica, strain of lumbar region, renal colic, pyelonephritis, thoracic back pain, AAA and discitis Medical Records Attestation: I reviewed the patient's medical records. Lab Data Attestation: I reviewed the patient's lab results. 08/28/24 12:16 08/28/24 12:16 Labs: Lab Results 08/28/24 08/28/24 Range/Units 12:16 12:46 WBC 5.8 (4.5-10.0) K/mm3 RBC 5.01 (4.2-5.4) M/mm3 Hgb 14.4 (12.0-15.0) g/dL Hct 44.3 (37.0-47.0) % MCV 88.4 (80-100) fl MCH 28.7 (26-34) pg MCHC 32.5 (32-36) g/dl RDW 13.6 (11.5-14.5) % Plt Count 250 (150-375) k/mm3 MPV 10.4 (7.4-10.4) fl Immature Gran % (Auto) 0.3 (0-0.5) % Neut % (Auto) 72.9 (45.5-73.1) % Lymph % (Auto) 16.6 L (18.3-44.2) % [place] % (Auto) 6.4 (2.6-8.5) % Eos % (Auto) 2.9 (0-4.4) % Baso % (Auto) 0.9 (0.2-1.2) % Lymph # (Auto) 0.96 (0.9-3.2) K/mm3 [place] # (Auto) 0.4 (0.1-0.6) K/mm3 Eos # (Auto) 0.2 (0-0.3) K/mm3 Baso # (Auto) 0.1 (0.0-0.1) K/mm3 Abs Immat Gran (auto) 0.02 (0.00-0.031) K/mm3 Absolute Neuts (auto) 4.2 (1.3-6.7) K/mm3 Absolute Nucleated RBC 0.000 (0.0-0.012) K/mm3 Nucleated RBC % 0.0 (0.0-0.2) % Sodium 141 (137-145) mmol/L Potassium 4.0 (3.4-5.0) mmol/L Chloride 107 (98-107) mmol/L Carbon Dioxide 26 (22-30) mmol/L Anion Gap 8 (4-12) mmol/L BUN 18 H (7-17) mg/dL Creatinine 0.62 L (0.7-1.0) mg/dL Estim Creat Clear Calc Not Reportable Estimated GFR > 60 (59 - ) Glucose 133 H (65-110) mg/dL Calcium 9.2 (8.4-10.2) mg/dL Total Bilirubin 0.5 (0.2-1.3) mg/dL AST 33 (14-36) U/L ALT 36 H (6-35) U/L Alkaline Phosphatase 61 (38-126) U/L Total Protein 7.0 (6.3-8.2) g/dL Albumin 4.0 (3.5-5.1) g/dL Urine Color Yellow (Yellow) Urine Appearance Cloudy H (Clear) Urine pH 5.0 (5.0-9.0) Ur Specific [place] 1.029 (1.001-1.035) Urine Protein Negative (Negative) mg/dL Urine Glucose (UA) Negative (Negative) mg/dL Urine Ketones Trace H (Negative) mg/dL Ur Blood (Man) Negative (Negative) Urine Nitrate Negative (Negative) Urine Bilirubin Negative (Negative) Urine Urobilinogen 1.0 (<2.0) mg/dL Leukocyte Esterase Rfl Negative (Negative) ABBY/UL Urine RBC 3-5 H (0-2) /hpf Urine WBC 0-5 (0-3) /hpf Ur Squamous Epith Cells Moderate (Few) /hpf Calcium Oxalate Crystal Present (None) /hpf Urine Bacteria None seen /hpf Urine Casts 3-5 Imaging Data Attestation: I personally reviewed and interpreted this imaging study as follows: Radiologist's impression: ITS Impressions Miscellaneous CT Procedure 08/28/24 12:38 IMPRESSION: 1. No urolithiasis or acute intra-abdominal/pelvic process. 2. Moderate-sized hiatal hernia. 3. Moderate sigmoid diverticulosis. 4. Moderate to severe lumbar and lower thoracic spondylosis as well as L5 spondylolysis with chronic bilateral pars interarticularis defects and 6 mm anterolisthesis L5 on S1. Discharge Plan Discharge Clinical Impression: Spondylolysis, thoracolumbar region Strain of lumbar region Qualifiers: Encounter type: initial encounter Qualified Code(s): S39.012A - Strain of muscle, fascia and tendon of lower back, initial encounter Patient Disposition: Home, Self-Care Condition: Stable Instructions: Antibiotic Form, Acute Low Back Pain (ED), Back Pain (ED) Additional Instructions: Continue Tylenol as needed for pain. Tramadol as needed for more severe pain. You may use ice/heat, lidocaine patches to area of pain. Take muscle relaxers as needed and prescribed. Recommend taking these at night as they may cause sedation. Do not drive, operate heavy machinery, drink alcohol while on muscle relaxers as this may cause further sedation. Use caution taking Tramadol with muscle relaxers as these can both cause sedation. Follow-up with your primary care doctor for further evaluation. Return to the ED if you experience worsening or severe pain, fall or injury, numbness in groin or legs, going to the bathroom without meaning to, unable to keep down food or drink, or any other symptoms of concern. Patient Language: Slovak Prescriptions: New cyclobenzaprine 5 mg tablet 5 mg PO TID PRN (Reason: muscle spasm) Qty: 15 0RF tramadol 50 mg tablet 50 mg PO Q6H PRN (Reason: pain) Qty: 15 0RF lidocaine 5 % adhesive patch,medicated 1 patch topical DAILY Qty: 15 0RF Rx Instructions: leave on most painful area for up to 12 hrs No Action fluticasone propionate 50 mcg/actuation spray,suspension See Rx Instructions .ROUTE .COMPLEX PRN (Reason: Allergy Symptoms) Qty: 16 2RF Rx Instructions: SPRAY 1 OR 2 SPRAYS INTO EACH NOSTRIL ONCE DAILY NEEDED aspirin 81 mg tablet,chewable See Rx Instructions .ROUTE .COMPLEX Qty: 90 1RF Dose Instruction: TAKE 1 TABLET BY MOUTH ONCE DAILY Rx Instructions: TAKE 1 TABLET BY MOUTH ONCE DAILY PreserVision AREDS 4,296 mcg-226 mg-90 mg capsule 1 cap PO BID Qty: 1 0RF acetaminophen 500 mg capsule 500 mg PO Q6H PRN (Reason: fever or pain) Qty: 30 0RF ferrous sulfate [FeroSul] 325 mg (65 mg iron) tablet See Rx Instructions .ROUTE .COMPLEX Qty: 90 1RF Dose Instruction: TAKE 1 TABLET BY MOUTH ONCE DAILY Rx Instructions: TAKE 1 TABLET BY MOUTH ONCE DAILY amlodipine 5 mg tablet See Rx Instructions .ROUTE .COMPLEX Qty: 90 1RF Dose Instruction: TAKE 1 TABLET BY MOUTH ONCE DAILY Rx Instructions: TAKE 1 TABLET BY MOUTH ONCE DAILY carvedilol 3.125 mg tablet See Rx Instructions .ROUTE .COMPLEX Qty: 180 1RF Dose Instruction: TAKE 1 TABLET BY MOUTH TWICE DAILY Rx Instructions: TAKE 1 TABLET BY MOUTH TWICE DAILY clopidogrel 75 mg tablet See Rx Instructions .ROUTE .COMPLEX Qty: 90 1RF Dose Instruction: TAKE 1 TABLET BY MOUTH ONCE DAILY Rx Instructions: TAKE 1 TABLET BY MOUTH ONCE DAILY lansoprazole 30 mg capsule,delayed release(DR/EC) See Rx Instructions .ROUTE .COMPLEX Qty: 90 1RF Dose Instruction: TAKE 1 CAPSULE BY MOUTH DAILY Rx Instructions: TAKE 1 CAPSULE BY MOUTH DAILY lisinopril 20 mg tablet See Rx Instructions .ROUTE .COMPLEX Qty: 180 1RF Dose Instruction: TAKE 1 TABLET BY MOUTH TWICE DAILY Rx Instructions: TAKE 1 TABLET BY MOUTH TWICE DAILY rosuvastatin 20 mg tablet See Rx Instructions .ROUTE .COMPLEX Qty: 90 1RF Dose Instruction: TAKE 1 TABLET BY MOUTH ONCE DAILY Rx Instructions: TAKE 1 TABLET BY MOUTH ONCE DAILY sertraline 100 mg tablet See Rx Instructions .ROUTE .COMPLEX Qty: 90 1RF Dose Instruction: TAKE 1 TABLET BY MOUTH ONCE DAILY Rx Instructions: TAKE 1 TABLET BY MOUTH ONCE DAILY (DME) BD Integra Syringe 3 mL 25 gauge x 5/8 syringe See Rx Instructions .Route Qty: 100 0RF Rx Instructions: Use for injection once a month As directed albuterol sulfate 90 mcg/actuation HFA aerosol inhaler 2 puff inhalation Q6H PRN (Reason: shortness of breath or wheezing) Qty: 18 3RF cyanocobalamin (vitamin B-12) 1,000 mcg/mL solution 1,000 mcg subcut MONTHLY Qty: 10 3RF Anoro Ellipta 62.5-25 mcg/actuation blister with device See Rx Instructions .ROUTE .COMPLEX Qty: 60 0RF Dose Instruction: INHALE 1 PUFF BY MOUTH DAILY Rx Instructions: INHALE 1 PUFF BY MOUTH DAILY Follow-up/Referrals: Krystyna Finney APRN [Primary Care Provider] - Time of Disposition: 14:40
[2024-08-28 12:22] LABS: Basophils Absolute Auto 0.1 K/mm3 (0.0-0.1); Basophils Percent Auto 0.9 % (0.2-1.2); Eosinophils Absolute Auto 0.2 K/mm3 (0-0.3); Eosinophils Percent Auto 2.9 % (0-4.4); Hematocrit 44.3 % (37.0-47.0); Hemoglobin 14.4 g/dL (12.0-15.0); Immature Granulocyte Absolute 0.02 K/mm3 (0.00-0.031); Immature Granulocyte Percent A 0.3 % (0-0.5); Lymphocytes Absolute Auto 0.96 K/mm3 (0.9-3.2); Lymphocytes Percent Auto 16.6 % (18.3-44.2); Mean Corpuscular HGB Conc 32.5 g/dl (32-36); Mean Corpuscular Hemoglobin 28.7 pg (26-34); Mean Corpuscular Volume 88.4 fl (80-100); Mean Platelet Volume 10.4 fl (7.4-10.4); Monocytes Absolute Auto 0.4 K/mm3 (0.1-0.6); Monocytes Percent Auto 6.4 % (2.6-8.5); Neutrophils Absolute Auto 4.2 K/mm3 (1.3-6.7); Neutrophils Percent Auto 72.9 % (45.5-73.1); Platelet Count Result 250 k/mm3 (150-375); Red Blood Count 5.01 M/mm3 (4.2-5.4); Red Cell Distribution Width 13.6 % (11.5-14.5); White Blood Count 5.8 K/mm3 (4.5-10.0)
[2024-08-28 12:31] LABS: Alanine Aminotransferase 36 U/L (6-35); Alkaline Phosphatase 61 U/L (38-126); Anion Gap 8 mmol/L (4-12); Aspartate Amino Transferase 33 U/L (14-36); Bilirubin,Total 0.5 mg/dL (0.2-1.3); Blood Urea Nitrogen 18 mg/dL (7-17); Calcium 9.2 mg/dL (8.4-10.2); Carbon Dioxide 26 mmol/L (22-30); Chloride 107 mmol/L (98-107); Estimated Glomerular Filt Rate > 60; Glucose 133 mg/dL (65-110); Sodium 141 mmol/L (137-145)
[2024-08-28] MEDS: SODIUM CHLORIDE 0.9% IV 1,000 ML 999 ML IV CONT (12:50)
[2024-08-28] MEDS: CYCLOBENZAPRINE HCL 5 MG TABLET PO (12:56)
[2024-08-28] MEDS: ACETAMINOPHEN 500 MG TABLET 1000 MG PO (12:56)
[2024-08-28 13:47] LABS: Add Urine Microscopic? YES; Appearance Urine Cloudy (Clear); Bacteria Urine None Seen /hpf; Bilirubin Urine Negative (Negative); Blood Urine Negative (Negative); Calcium Oxalate Crystals Urine Present /hpf; Color Urine Yellow (Yellow); Glucose Urine UA Negative (Negative); Ketones Urine Trace mg/dL (Negative); Leukocyte Esterase Ur Negative LEU/UL (Negative); Nitrate Urine Negative (Negative); Protein Urine Negative (Negative); Specific Grav Ur 1.029 (1.001-1.035); Squamous Epithelial Cell Urine Moderate /hpf (Few); WBC Urine 0-5 /hpf (0-3)
[2024-08-28] MEDS: traMADol HCL (*CRX) 50 MG TABLET PO (14:19)
--- OUTSIDE RECORDS SUMMARY | 2024-08-30 00:04 | XMS_ITS | Referral Summary ---
Author Organization [facility] [place] [address] [facility] [address] Address [address] [place] [address] Care Team Providers Care [employer] Safety Engineer Name Role Phone Unknown, Notinfile Primary Care Provider Unavail able Allergies Active Allergy Reactions Criticality Noted Date Comments Famotidine Rash Medium 03/19/2013 Medications albuterol HFA (PROVENTIL HFA,VENTOLIN HFA,PROAIR HFA) 90 mcg/actuation inhaler Inhale 2 puffs every 6 (six) hours as needed for wheezing Active aspirin 81 mg enteric coated tablet Take 81 mg by mouth daily Active clopidogreL (PLAVIX) 75 mg tablet Take 75 mg by mouth daily Active cyanocobalamin (Vitamin B-12) 1,000 mcg tabletIndicatio ns:Prevention of Vitamin B12 Deficiency Take 1,000 mcg by mouth daily Active ferrous sulfate ER 324 mg (65 mg iron) EC tabletIndicatio ns:Iron Deficiency Anemia Take 65 mg by mouth Active fluticasone propionate (FLONASE) 50 mcg/actuation nasal spray Administer 1 spray into each nostril daily Active sertraline (ZOLOFT) 100 mg tablet Take 100 mg by mouth daily Take 1.5 tablets daily Active rosuvastatin (CRESTOR) 20 mg tabletIndicatio ns:TIA (transient ischemic attack),Hyperli pidemia LDL goal <70 Take 1 tablet (20 mg total) by mouth daily 30 tablet 11 0 Active lisinopriL (PRINIVIL,ZESTR IL) 10 mg tablet Take 1 tablet (10 mg total) by mouth daily 30 tablet 11 0 Active Additional Information Patient taking differently: 20 mgoral2 times daily, Reported on 05/18/2020 nystatin ointment 0 Active amLODIPine (NORVASC) 5 mg tablet 1 Active lansoprazole (PREVACID) 30 mg capsule 1 Active Anoro Ellipta 62.5-25 mcg/actuation blister with device 1 Active carvediloL (COREG) 3.125 mg tablet 1 Active Active Problems Problem Noted Date Diagnosed Date Status post placement of implantable loop record er 05/18/2020 Overview (05/18/2020): [employer] Reveal Implantable Loop Recorder. Dx; TIA. DOI 05/11/2020-Gian. Chloe remote monitoring. Chronic obstructive pulmonary disease 05/01/2020 Hyperlipidemia LDL goal <70 05/01/2020 Essential hypertension 05/01/2020 TIA (transient ischemic attack) 05/01/2020 Carotid artery dissection (CMS/HCC) 05/01/2020 Social History Tobacco Use Types Packs/Day Years Used Date Smoking Tobacco: Former Cigarettes 3 45 0 05/01/1958 - 05/01/2003 Smokeless Tobacco: Never Tobacco Cessation:Counseling Given: Yes Alcohol Use Standard Drinks/Week Comments Not Currently 0 (1 standard drink = 0.6 oz pur e alcohol) Personal Safety Answer Date Recorded Getting School Help Needed Not on file 10/07 Comments Unknown Sex and Gender Information Value Date Recorded Sex Assigned at Not on file Legal Sex Female 6:33 PM [employer]OW [employer] Gender Identity Not on file Sexual Orientation Not on file Last Filed Vital Signs Vital Sign Reading Time Taken Comments Blood Pressure 121/83 01/26/2021 12:32 PM CDT Pulse 83 01/26/2021 12:32 PM CDT Temperature 36.1 ??C (97 ??F) 01/26/2021 12:32 PM CDT Respiratory Rate - - Oxygen Saturation 97% 01/18/2021 12:17 PM CDT Inhaled Oxygen Concentration - - Weight 87.3 kg (192 lb 6.4 oz) 01/26/2021 12:32 PM CDT Height 149.9 cm (4' 11 ) 01/26/2021 12:32 PM CDT Body Mass Index 38.86 01/26/2021 12:32 PM CDT Plan of Treatment Not on file Insurance [employer] [facility] Care Teams [employer] Safety Engineer Relationship Specialty Start Date End Date Unknown, Notinfile PCP - General 11/24/22
--- OUTSIDE RECORDS SUMMARY | 2024-08-30 00:04 | XMS_ITS | Data Portability ---
Author Organization RONI SANDERTonio Warren Address [address] [place] [address] Assessment No assessment recorded. Plan of Treatment Reminders Order Date Submit Date Provider Last Modified By Organization Details Last Modified Time Details Appointments None recorded. Lab CMP, serum or plasma 2017 018 [facility], [address] [place] [address], [address], [place], [address], 8 07:12:51 CBC w/ auto diff 2017 018 [facility], [address] [place] [address], [address], [place], [address], 8 07:12:50 HbA1c (hemoglobi n A1c), blood 2017 018 [facility], [address] [place] [address], [address], [place], [address], 8 07:12:52 lipid panel, serum 2017 018 [facility], [address] [place] [address], [address], [place], [address], 8 07:12:51 Referral gastroente rologist referral 2017 018 walt Not available 9 17:03:22 Procedures None recorded. Surgeries None recorded. Imaging MAMMO, screening, bilateral 2017 018 [email or web address] Not available 8 12:45:03 Medication Orders clopidogre l 75 mg tablet 2017 018 [id number], [facility] [address] , [place], [address], 8 12:24:16 ranitidine 150 mg tablet 2017 018 [facility] [address], [place], [address], 8 12:28:21 Ventolin HFA 90 mcg/actuat ion aerosol inhaler 2017 018 [facility] [address] [place] [address] , [place], [address], 8 12:25:40 sertraline 100 mg tablet 2017 018 [facility] [address], [place], [address], 8 12:25:15 Patient TargetsNo targets recorded. Patient Instructions Encounter Date Encounter Id Patient Instructions Last Modified By Organization Details Last Modified Time 07/18/2018 [id number] mammogram: about this test amueth Not available 07/18/2018 12:26:27 gastroesophageal reflux disease (GERD): care instructions amueth Not available 07/18/2018 12:28:19 chronic obstruct santiago pulmonary disease (COPD): care instructions amueth Not available 07/18/2018 12:25:39 learning about c opd and how to prevent lung infections amueth Not available 07/18/2018 12:25:39 obsessive-compul sive disorder: care instructions amueth Not available 07/18/2018 12:25:13 A healthy lifest yle: care instructions amueth Not available 07/18/2018 12:34:19 body mass index: care instructions amueth Not available 07/18/2018 12:35:16 learning about healthy weight amueth Not available 07/18/2018 12:35:16 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 History of polyp of colon Referring Physician: [facility], Encounter Date: 07/18/2018 Results Created Date Observation Date Name Description Value Unit Range Abnormal Flag Note LastModifiedBy Organization Detail LastModifiedTime 07/18/20 18 07/19/2018 CBC w/ auto diff WBC 6.6 x10e3 /uL 3.4-10 .8 Not Available [facility] ([facility]) [address], [place], [place], [address], 07/19/2018 07:12:50 07/18/20 18 07/19/2018 CBC w/ auto diff RBC 4.82 x10e6 /uL 3.77-5 .28 Not Available [facility] ([facility]) [address] [place], [address], 07/19/2018 07:12:50 07/18/20 18 07/19/2018 CBC w/ auto diff hemoglobin 12.1 g/dL 11.1-1 5.9 Not Available [facility] ([facility]) [address], [place], [place], [address], 07/19/2018 07:12:50 07/18/20 18 07/19/2018 CBC w/ auto diff hematocrit 37.2 % 34.0-4 6.6 Not Available [facility] ([facility]) [address] [place], [address], 07/19/2018 07:12:50 07/18/20 18 07/19/2018 CBC w/ auto diff MCV 77 fL 79-97 below low normal Not Available [facility] ([facility]) [address] [place], [address], 07/19/2018 07:12:50 07/18/20 18 07/19/2018 CBC w/ auto diff MCH 25.1 pg 26.6-3 3.0 below low normal Not Available [facility] ([facility]) [address] [place] [address], [address], 07/19/2018 07:12:50 07/18/20 18 07/19/2018 CBC w/ auto diff MCHC 32.5 g/dL 31.5-3 5.7 Not Available [facility] ([facility]) [address], [place], [place], [address], 07/19/2018 07:12:50 07/18/20 18 07/19/2018 CBC w/ auto diff RDW 14.4 % 12.3-1 5.4 Not Available [facility] ([facility]) [address], [place], [place], [address], 07/19/2018 07:12:50 07/18/20 18 07/19/2018 CBC w/ auto diff platelets 422 x10e3 /uL 150-37 9 above high normal Not Available [facility] ([facility]) [address], [place], [place], [address], 07/19/2018 07:12:50 07/18/20 18 07/19/2018 CBC w/ auto diff neutrophils 62 % not estab. Not Available [facility] ([facility]) [address], [place], [place], [address], 07/19/2018 07:12:50 07/18/20 18 07/19/2018 CBC w/ auto diff lymphs 26 % not estab. Not Available [facility] ([facility]) [address], [place], [place], [address], 07/19/2018 07:12:50 07/18/20 18 07/19/2018 CBC w/ auto diff monocytes 10 % not estab. Not Available [facility] ([facility]) [address], [place], [place], [address], 07/19/2018 07:12:50 07/18/20 18 07/19/2018 CBC w/ auto diff eos 1 % not estab. Not Available [facility] ([facility]) [address] [place] [address], [place], [address], 07/19/2018 07:12:50 07/18/20 18 07/19/2018 CBC w/ auto diff basos 1 % not estab. Not Available [facility] ([facility]) [address], [place], [place], [address], 07/19/2018 07:12:50 07/18/20 18 07/19/2018 CBC w/ auto diff immature cells SIGN LANGUAGE INSTRUCTOR Not Available [facility] ([facility]) [address], [place], [place], [address], 07/19/2018 07:12:50 07/18/20 18 07/19/2018 CBC w/ auto diff neutrophils (absolute) 4.1 x10e3 /uL 1.4-7. 0 Not Available [facility] ([facility]) [address] [place], [address], 07/19/2018 07:12:50 07/18/20 18 07/19/2018 CBC w/ auto diff lymphs (absolute) 1.7 x10e3 /uL 0.7-3. 1 Not Available [facility] ([facility]) [address], [place], [place], [address], 07/19/2018 07:12:50 07/18/20 18 07/19/2018 CBC w/ auto diff monocytes(ab solute) 0.6 x10e3 /uL 0.1-0. 9 Not Available [facility] ([facility]) [address] [place], [address], 07/19/2018 07:12:50 07/18/20 18 07/19/2018 CBC w/ auto diff eos (absolute) 0.1 x10e3 /uL 0.0-0. 4 Not Available [facility] ([facility]) [address] [place], [address], 07/19/2018 07:12:50 07/18/20 18 07/19/2018 CBC w/ auto diff baso (absolute) 0.0 x10e3 /uL 0.0-0. 2 Not Available [facility] ([facility]) [address] [place], [address], 07/19/2018 07:12:50 07/18/20 18 07/19/2018 CBC w/ auto diff immature granulocytes 0 % not estab. Not Available [facility] ([facility]) [address], [place], [address], 07/19/2018 07:12:50 07/18/20 18 07/19/2018 CBC w/ auto diff immature grans (abs) 0.0 x10e3 /uL 0.0-0. 1 Not Available [facility] ([facility]) [address], [place], [address], 07/19/2018 07:12:50 07/18/20 18 07/19/2018 CBC w/ auto diff NRBC SIGN LANGUAGE INSTRUCTOR Not Available [facility] ([facility]) [address], [place], [address], 07/19/2018 07:12:50 07/18/20 18 07/19/2018 CBC w/ auto diff hematology comments: SIGN LANGUAGE INSTRUCTOR Not Available [facility] ([facility]) [address], [place], [address], 07/19/2018 07:12:50 07/18/20 18 07/19/2018 CMP, serum or plasm a glucose 100 mg/dL 65-99 above high normal Not Available [facility] ([facility]) [address], [place], [address], 07/19/2018 07:12:51 07/18/2007/19/2018 CMP, serum or plasm a BUN 17 mg/dL 8-27 Not Available [facility] ([facility]) [address], [place], [address], 07/19/2018 07:12:51 07/18/2007/19/2018 CMP, serum or plasm a creatinine 0.85 mg/dL 0.57-1 .00 Not Available [facility] ([facility]) [address], [place], [address], 07/19/2018 07:12:51 07/18/20 18 07/19/2018 CMP, serum or plasm a eGFR if nonafricn AM 72 mL/mi n/1.7 3 >59 Not Available [facility] ([facility]) [address], [place], [address], 07/19/2018 07:12:51 07/18/20 18 07/19/2018 CMP, serum or plasm a eGFR if africn AM 83 mL/mi n/1.7 3 >59 Not Available [facility] ([facility]) [address] [place], [address], 07/19/2018 07:12:51 07/18/20 18 07/19/2018 CMP, serum or plasm a BUN/creatini ne ratio 20 12-28 Not Available [facility] ([facility]) [address] [place], [address], 07/19/2018 07:12:51 07/18/20 18 07/19/2018 CMP, serum or plasm a sodium 141 mmol/ L 134-14 4 Not Available [facility] ([facility]) [address] [place], [address], 07/19/2018 07:12:51 07/18/20 18 07/19/2018 CMP, serum or plasm a potassium 4.3 mmol/ L 3.5-5. 2 Not Available [facility] ([facility]) [address] [place], [address], 07/19/2018 07:12:51 07/18/20 18 07/19/2018 CMP, serum or plasm a chloride 101 mmol/ L 96-106 Not Available [facility] ([facility]) [address] [place] [address], [address], 07/19/2018 07:12:51 07/18/20 18 07/19/2018 CMP, serum or plasm a carbon dioxide, total 24 mmol/ L 20-29 Not Available [facility] ([facility]) [address] [place], [address], 07/19/2018 07:12:51 07/18/20 18 07/19/2018 CMP, serum or plasm a calcium 9.6 mg/dL 8.7-10 .3 Not Available [facility] ([facility]) [address] [place], [address], 07/19/2018 07:12:51 07/18/20 18 07/19/2018 CMP, serum or plasm a protein, total 7.2 g/dL 6.0-8. 5 Not Available [facility] ([facility]) [address] [place], [address], 07/19/2018 07:12:51 07/18/20 18 07/19/2018 CMP, serum or plasm a albumin 4.4 g/dL 3.6-4. 8 Not Available [facility] ([facility]) [address], [place], [address], 07/19/2018 07:12:51 07/18/2007/19/2018 CMP, serum or plasm a globulin, total 2.8 g/dL 1.5-4. 5 Not Available [facility] ([facility]) [address] [place], [address], 07/19/2018 07:12:51 07/18/2007/19/2018 CMP, serum or plasm a A/G ratio 1.6 1.2-2. 2 Not Available [facility] ([facility]) [address], [place], [address], 07/19/2018 07:12:51 07/18/2007/19/2018 CMP, serum or plasm a bilirubin, total 0.4 mg/dL 0.0-1. 2 Not Available [facility] ([facility]) [address], [place], [address], 07/19/2018 07:12:51 07/18/20 18 07/19/2018 CMP, serum or plasm a alkaline phosphatase 76 IU/L 39-117 Not Available [facility] ([facility]) [address] [place], [address], 07/19/2018 07:12:51 07/18/20 18 07/19/2018 CMP, serum or plasm a AST (SGOT) 22 IU/L 0-40 Not Available [facility] ([place] [facility]) [address], [place], [address], 07/19/2018 07:12:51 07/18/2007/19/2018 CMP, serum or plasm a ALT (SGPT) 21 IU/L 0-32 Not Available [facility] ([place] [facility]) [address], [place], [address], 07/19/2018 07:12:51 07/18/20 18 07/19/2018 lipid panel , serum cholesterol, total 181 mg/dL 100-19 9 Not Available [facility] ([facility]) [address] [place], [address], 07/19/2018 07:12:51 07/18/2007/19/2018 lipid panel , serum triglyceride s 163 mg/dL 0-149 above high normal Not Available [facility] ([place] [facility]) [address], [place], [address], 07/19/2018 07:12:51 07/18/2007/19/2018 lipid panel , serum HDL cholesterol 42 mg/dL >39 Not Available [facility] ([facility]) [address] [place], [address], 07/19/2018 07:12:51 07/18/2007/19/2018 lipid panel , serum VLDL cholesterol flavio 33 mg/dL 5-40 Not Available [facility] ([facility]) [address], [place], [address], 07/19/2018 07:12:51 12/12/20 18 07/19/2018 lipid panel , serum LDL cholesterol calc 106 mg/dL 0-99 above high normal Not Available [facility] ([facility]) [address], [place], [place], [address], 07/19/2018 07:12:51 07/18/20 18 07/19/2018 lipid panel , serum comment: SIGN LANGUAGE INSTRUCTOR Not Available [facility] ([facility]) [address], [place], [place], [address], 07/19/2018 07:12:51 07/18/20 18 07/19/2018 HbA1c (hemo globi n A1c), blood hemoglobin A1C 5.9 % 4.8-5. 6 above high normal Predi abete s: 5.7 - 6.4 Diabe aman: >6.4 Glyce svetlana contr ol for adult s with diabe aman: <7.0 Not Available [facility] ([facility]) [address], [place], [place], [address], 07/19/2018 07:12:52 Result Notes None recorded. Problems Name Problem SNOMED Code Status Onset Date Resolution Date Notes Provider Name and Address Organization Details Recorded Time Chronic obstructive pulmonary disease 80944151 Active 2017 Not Available [facility] 4 21:03:36 Obsessive-com pulsive disorder 181187123 Active 2017 Not Available [facility] 4 21:03:36 Anxiety 85922331 Active 2017 Not Available [facility] 4 21:03:36 Problem Notes None recorded. Procedures Surgical History Date Name Laterality Status Provider Name and Address Organization Details Recorded Time Total hysterectomy completed HERMILA Singleton - [facility] 07/18/2018 12:15:16 Appendectomy completed HERMILA Fonseca [facility] 07/18/2018 12:15:24 Tonsillectomy completed HERMILA Fonseca SIBriana 07/18/2018 12:15:29 Imaging Results None recorded. Procedure Notes None recorded. Medical Equipment None Reported. Allergies Allergen ID Allergen Name Allergen Category Reaction Reaction Severity Criticality Documentation Date Start Date Code Code System Note Provider Name and Address Organization Details Recorded Time [id number] Pepcid medicatio n hives severe Not available 07/18/2018 20087 8 RxNorm Not Available Not Available Not Available Medications Name Sig Start Date Stop Date Status Note LastModified by Organization Details LastModified Time sertraline 100 mg tablet TAKE 1 TABLET BY MOUTH EVERY NIGHT AT BEDTIME 2018 active Not Available Not Available Not Avai lable clopidogrel 75 mg tablet TAKE ONE TABLET BY MOUTH ONCE DAILY 2018 active Not Available Not Available Not Avai lable ranitidine 150 mg tablet Take 1 tablet twice a day by oral route for 30 days. 2017 active Not Available Not Available Not Avai lable Ventolin HFA 90 mcg/actuatio n aerosol inhaler Inhale 2 puffs every 4 hours by inhalation route as needed. 2017 active Not Available Not Available Not Avai lable Vitals Date Recorded Body height Provider Name an d Address Organization Details Last Updated DateTime 07/18/2018 153.67 cm Gin Bear [place] [facility] 2017 12:21:02 Date Recorded Body mass index (BMI) Body weight Provider Name and Address Organization Details Last Updated DateTime 07/18/2018 35.9 kg/m2 77575.77 g Gin Bear [place] [facility] 07/18/2018 12:21:08 Date Recorded Oxygen saturation Oxygen saturation in Arterial blood by Pulse oximetry Provider Name and Address Organization Details Last Updated DateTime 07/18/2018 92 % 92 % Gin Bear [place] [facility] 07/18/2018 12:21:12 Date Recorded Pain severity - 0-10 verbal numeric rating [Score] - Reported Provider Name and Address Organization Details Last Updated DateTime 07/18/2018 0 Not Available [facility] 8 07:32:51 Date Recorded Heart rate Provider Name an d Address Organization Details Last Updated DateTime 07/18/2018 86 /min HERMILA Fonseca [facility] 2017 12:21:18 Date Recorded Body temperature Provider Name a nd Address Organization Details Last Updated DateTime 07/18/2018 97.9 [degF] Gin Bear [place] [facility] 07/18/2018 12:21:22 Date Recorded Systolic blood pressure Diastolic blood pressure Provider Name and Address Organization Details Last Updated DateTime 07/18/2018 132 mm[Hg] 82 mm[Hg] Gin Bear MA [facility] 07/18/2018 12:20:57 Social History Question Answer Notes LastModified by Organizat ion Details LastModified Time Tobacco Smoking Status Former Smoker Gin eBar MA [facility] 07/18/2018 12:12:32 Do You Have An Advance Directive? No Information not available 07/18/2018 What Is Your Level Of Alcohol Consumption? None Information not available 07/18/2018 What Is Your Level Of Caffeine Consumption? Moderate Information not available 07/18/2018 How Much Tobacco Do You Chew? None Information not available 07/18/2018 Are You Currently Employed? Yes Information not available 07/18/2018 What Type Of Diet Are You Following? REGULAR Information not available 07/18/2018 Which Illicit Or Recreational Drugs Have You Used? None Information not available 07/18/2018 Education 12 Information no t available 07/18/2018 What Is Your Occupation? [employer] Information not available 07/18/2018 Are There Any Guns Present In Your Home? No Information not available 07/18/2018 Hard Of Hearing Or Deaf In One Or Both Ears? No Information not available 07/18/2018 Legally Blind In One Or Both Eyes? No Information no t available 07/18/2018 Live Alone Or With Others? Alone Information not available 07/18/2018 What Was The Date Of Your Most Recent Tobacco Screening? 07/18/2018 Information not available 02/28/2019 How Many Children Do You Have? 2 Information not available 07/18/2018 Seat Belts Used Routinely Yes Information not available 07/18/2018 Are You Sexually Active? No Information not available 07/18/2018 Smoke Alarm In Home Yes Information not available 07/18/2018 General Stress Level Low Information not available 07/18/2018 Do You Use Sunscreen Routinely? Yes Information not available 07/18/2018 How Many Years Have You Smoked Tobacco? 30 Information not available 07/18/2018 Sex: Unknown Functional Status Question Answer Note LastModified by Organizat ion Details LastModified Time Are you able to care for yourself? Yes Information not available 07/18/2018 What is your exercise level? Moderate Lots of walking Information not available 07/18/2018 Mental Status None recorded. Family History Relationship Description Onset Age of this Age Resolved Age Notes LastModified by Organization Details LastModified Time Father Diabetes mellitus [email or web address] Not available 2017 12:11:29 Father Heart disease [email or web address] Not available 2017 12:11:41 Mother Diabetes mellitus [email or web address] Not available 2017 12:11:29 Mother Myocardial infarction 53 [email or web address] Not available 07/18 12:11:55 Mother Depressive disorder [place] Not available 2017 12:12:24 Sister Diabetes mellitus [email or web address] Not available 2017 12:11:29 Sister Anxiety [email or web address] Not available 07/18/2018 12:12:14 Brother Myocardial infarction [email or web address] Not available 07/18 12:11:55 Brother Depressive disorder [place] Not available 2017 12:12:24 Medical History Condition Response Coronary Artery Disease N Other N Atrial Fibrillation N High Blood Pressure N Thyroid Problems Y Kidney or Bladder Problems N Depression Y COPD Y Blood Clots Y GI Problems N Skin Problems N Heart Attack ([place]) N Anxiety Disorder Y Diabetes N Muscle, Joint, or Bone Problems Y Seizures/Epilepsy N Acid Reflux (GERD) Y Cancer N Stroke Y Allergies Y Asthma N High Cholesterol N Hepatitis N Liver Disease N Headaches Y Osteoporosis Y Heart Failure N Gynecological History Statement/Question Response Date of Last Pap Smear Date of Last Mammogram Obstetrics History GPAL:G 2 P 2 0 0 2 Type Value Full Term 2 Living 2 Total 2 Immunizations Vaccine Type Date Status Note Provider Nam e and Address Organization Details Recorded Time Influenza, high-dose, trivalent, PF 8 completed Not Available [facility] 08/24/2019 02:44:51 Pneumococcal conjugate PCV 13 8 completed Not Available [facility] 08/24/2019 02:36:58 Past Encounters Encounter ID Performer Location Encounter Start Date Encounter Closed Date Diagnosis/Indication Diagnosis SNOMED-CT Code Diagnosis ICD10 Code Diagnosis Note [id number] JONELLE Strickland NP [facility] [address] [place] [address] 07/18/2018 11:44:24 07/18/2018 12:45:02 History of cerebrovascular accident 681911092 Z86.73 -Obtain labs Obsessive- compulsive disorder 026061471 F42.9 -Continue sertraline as directed Chronic ob structive pulmonary disease 19497757 J44.9 -Continue ventolin prn Screening mammography 24 823552 Z12.31 -Order given for mammogram Gastroesop hageal reflux disease 393011099 K21.9 -Start ranitidine as directed-B land diet Active or passive immunization 588996041 Z23 History of polyp of colon 967408458 Z86.010 -Refer to GI Family his tory of diabetes mellitus 877613984 Z83.3 -Check HgA1C Body mass index 30+ - obesity 098412919 Z68.35 -Check lipid panel Health Concerns Section Related Observation LastModified by Organization Detai ls LastModified Time None Recorded Concern Status LastModified by Organization Details LastModified Time None Recorded Advance Directives Directive N: Payers Encounter Date Sequence Insurance Name Policy Number Policy Anna Covered Member ID Anna Member ID Guarantor Name 07/18/2018 1 [place] Lauryn Sanchez [id number] Lauryn Sanchez Notes Date Note Type Note Provider Name and Address Organization Details Recorded Time 07/18/2018 text/html Patient presents today to establish care. Hx of strokes- currently takes plavix.Unsure of last mammogram.Hx of osteoporosis, but can not tolerate treatment medications.Has never had a colonoscopy. JONELLE Strickland NP Attn: Accounting,[address] [facility], [place], [address], [facility] - [facility] 07/19/2018 15:07:19 OBGyn Episode No OBEpisode recorded.
--- OUTSIDE RECORDS SUMMARY | 2024-08-30 00:04 | XMS_ITS | Clinical Summary ---
Author Organization [facility] [address] [facility] [address] [place] [address] Care Team Providers Care Critical Care Cns Name Role Phone Unknown, Notinfile Primary Care [...] implantable loop record er 05/18/2020 Overview (05/18/2020): [employer] Reveal Implantable Loop Recorder. Dx; TIA. DOI 05/11/2020-Gian. Chloe remote monitoring. Chronic obstructive pulmonary disease 05/01/2020 Hyperlipidemia LDL goal <70 05/01/2020 Essential hypertension 05/01/2020 TIA (transient ischemic attack) 05/01/2020 Carotid artery dissection (CMS/HCC) 05/01/2020 Surgical History Surgery Date Site/Laterality Comments HYSTERECTOMY APPENDECTOMY TONSILLECTOMY Medical History Medical History Date Comments Hypertension Hyperlipidemia Acid indigestion Anemia Diverticulitis Anxiety Arthritis Family History Medical History Relation Name Comments Alzheimer's disease Father Heart attack Mother Relation Name Status Comments Father (Age 87) Mother (Age 53) Sister Alive Social History Tobacco Use Types Packs/Day Years [...] on file 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 Gender Identity Not on file Sexual Orientation Not on file Obstetrics History Last Filed Vital Signs Vital Sign Reading [...] 01/26/2021 12:32 PM CDT Plan of Treatment Health Maintenance Due Date Last Done Comments Breast Cancer Screening-Mammogram 1952 Colon Cancer Screening-Colonoscopy 1950 Depression Screening 1952 Fall Risk Assessment 1950 Hepatitis C Screening 1952 Osteoporosis Screening-Bone Density Scan 1952 Hepatitis B Screening 1970 Zoster Vaccine (1 of 2) 2002 Well Visit 65+ 2017 Pneumococcal vaccine 65+ (2 of 2 - PPSV23 or PCV20) 09/12/2018 07/18/2018 Influenza Vaccine (#1) 2024 04/12/2020, 2017 DTaP/Tdap/Td Vaccine (2 - Td or Tdap) 01/22/2027 Insurance [facility] Care Teams Critical Care Cns Relationship Specialty Start Date End Date Unknown, Notinfile PCP - General 11/24/22
== END 2024-08-28 15:22 ==
PROVIDERS: Emergency Provider Physician Assistant; PCP Nurse Practitioner Family
DX: S39.012A Strain of muscle, fascia and tendon of lower back, initial encounter (principal); M43.06 Spondylolysis, lumbar region; M47.814 Spondylosis without myelopathy or radiculopathy, thoracic region; M47.816 Spondylosis without myelopathy or radiculopathy, lumbar region; I10 Essential (primary) hypertension; I77.71 Dissection of carotid artery; J44.9 Chronic obstructive pulmonary disease, unspecified; E78.5 Hyperlipidemia, unspecified; K21.9 Gastro-esophageal reflux disease without esophagitis; K44.9 Diaphragmatic hernia without obstruction or gangrene; D50.9 Iron deficiency anemia, unspecified; M81.0 Age-related osteoporosis without current pathological fracture; Z86.73 Personal history of transient ischemic attack (TIA), and cerebral infarction without residual deficits; Z86.0100 Personal history of colon polyps, unspecified; Z87.891 Personal history of nicotine dependence; Z90.710 Acquired absence of both cervix and uterus; Z79.82 Long term (current) use of aspirin; Z79.899 Other long term (current) drug therapy; Z79.02 Long term (current) use of antithrombotics/antiplatelets; K57.30 Diverticulosis of large intestine without perforation or abscess without bleeding; X58.XXXA Exposure to other specified factors, initial encounter
CPT/HCPCS: 36415; 72131; 74176; 80053; 81001; 85025; 96360; 99284; A9270; J7030

== ENCOUNTER 2025-04-22 09:08 | Outpatient (CLI) | payer MEDICARE, MEDICAID, SELFPAY ==
[2025-04-22 09:54] LABS: Hematocrit 47.2 % (37.0-47.0); Hemoglobin 15.0 g/dL (12.0-15.0); Immature Granulocyte Percent A 0.2 % (0-0.5); Lymphocytes Absolute Auto 0.97 K/mm3 (0.9-3.2); Mean Corpuscular HGB Conc 31.8 g/dl (32-36); Mean Corpuscular Hemoglobin 27.9 pg (26-34); Mean Corpuscular Volume 87.7 fl (80-100); Nucleated Red Blood Cells Absolute Auto 0.000 K/mm3 (0.0-0.012); Nucleated Red Blood Cells Perc 0.0 % (0.0-0.2); Platelet Count Result 279 k/mm3 (150-375); Red Blood Count 5.38 M/mm3 (4.2-5.4); White Blood Count 4.9 K/mm3 (4.5-10.0)
[2025-04-22 10:13] LABS: Hemoglobin A1C 6.1 % (<5.7)
[2025-04-22 10:16] LABS: Alanine Aminotransferase 46 U/L (6-35); Albumin Level 4.4 g/dL (3.5-5.1); Alkaline Phosphatase 72 U/L (38-126); Anion Gap 8 mmol/L (4-12); Aspartate Amino Transferase 44 U/L (14-36); Bilirubin,Total 0.5 mg/dL (0.2-1.3); Blood Urea Nitrogen 17 mg/dL (7-17); Calcium 9.4 mg/dL (8.4-10.2); Carbon Dioxide 27 mmol/L (22-30); Chloride 105 mmol/L (98-107); Cholesterol 124 mg/dL (0-200); Estimated Glomerular Filt Rate > 60; Glucose 90 mg/dL (65-110); HDL Direct 44 mg/dL; Iron 112 ug/dL (37-170); Potassium 4.1 mmol/L (3.4-5.0); Sodium 140 mmol/L (137-145); Total Protein 7.6 g/dL (6.3-8.2); Triglycerides 188 mg/dL (<150)
[2025-04-22 10:26] LABS: Percent Iron Saturation 33 % (20-50)
--- OUTSIDE RECORDS SUMMARY | 2025-04-22 10:35 | XMS_ITS | Clinical Summary ---
Author Organization [facility] Address [address] [place] [id number] Care Team Providers Care Mold Filler Plastic Dolls Name Role Phone Unavailable Primary Care Provider Unavailabl e Social History Tobacco Use Types Packs/Day Years Used Date Smoking Tobacco: Never Assessed Comments Unknown Sex and Gender Information Value Date Recorded Sex Assigned at Not on file Legal Sex Female 5:55 PM CDT Gender Identity Not on file Sexual Orientation Not on file Last Filed Vital Signs Vital Sign Reading Time Taken Comments Blood Pressure 140/88 01/16/2017 2:21 PM CDT Pulse 91 01/16/2017 2:21 PM CDT Temperature - - Respiratory Rate - - Oxygen Saturation - - Inhaled Oxygen Concentration - - Weight 78.6 kg (173 lb 6.1 oz) 01/16/2017 2:21 P M CDT Height 151.1 cm (4' 11.5) 01/16/2017 2:21 PM CD T Body Mass Index 34.43 01/16/2017 2:21 PM CDT Plan of Treatment Health Maintenance Due Date Last Done Comments Colorectal Cancer Screening Colonoscopy (10 Years) 1952 Hepatitis C 1970 DTaP, Tdap and Td Vaccines ( 1 - Tdap) 11/12/1971 Mammogram Screening 1992 Pneumococcal Vaccine: 50+ Ye ars (1 of 1 - PCV) 2002 Zoster Vaccines (1 of 2) 2002 Dexa Scan (General) 2017 COVID-19 Vaccine ( - 2023-2 5 season) 2025 RSV Immunization or 60+ Years (1 - 1-dose 75+ series) 11/12/2027 Meningococcal B Vaccine Aged Out No l onger eligible based on patient's age to complete this topic Meningococcal Vaccine Aged Out No michelle shaylee eligible based on patient's age to complete this topic RSV Immunizations Under 20 Months Aged Out No longer eligible based on patient's age to complete this topic
--- OUTSIDE RECORDS SUMMARY | 2025-04-22 10:35 | XMS_ITS | Encounter Summary ---
Author Organization [facility] Address [address] [place] [id number] Care Team Providers Care Librarian Head Name Role Phone Unavailable Primary Care Provider Unavailabl e Encounter Details Date Type Department Care Team (Latest Contact Info) Description 06/12/2018 Abstract [facility] , Generic MD Natalie Social History Tobacco Use Types Packs/Day Years Used Date Smoking Tobacco: Never Assessed Comments Unknown Sex and Gender Information Value Date Recorded Sex Assigned at Not on file Legal Sex Female 5:55 PM CDT Gender Identity Not on file Sexual Orientation Not on file documented as of this encounter Plan of Treatment Not on file documented as of this encounter Visit Diagnoses Not on filedocumented in this encounter
--- OUTSIDE RECORDS SUMMARY | 2025-04-22 10:35 | XMS_ITS | Clinical Summary ---
Author Organization [facility] [address] [facility] [address] [place] [address] Care Team Providers Care Tax Processor Name Role Phone Unknown, Notinfile Primary Care [...] implantable loop record er 05/18/2020 Overview (05/18/2020): [employer] Reveal Implantable Loop Recorder. Dx; TIA. DOI 05/11/2020-Gian. [employer]link remote monitoring. 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 Gender Identity Not on file Sexual Orientation Not on file Obstetrics History Last Filed Vital Signs Vital Sign Reading Time Taken Comments Blood Pressure 121/83 01/26/2021 12:32 PM CDT Pulse 83 01/26/2021 12:32 PM CDT Temperature 36.1 C (97 F) 01/26/2021 12:32 PM CDT Respiratory Rate - - Oxygen Saturation 97% 01/18/2021 12:17 PM CDT Inhaled Oxygen Concentration - - Weight 87.3 kg (192 lb 6.4 oz) 01/26/2021 12:32 PM CDT Height 149.9 cm (4' 11) 01/26/2021 12:32 PM CDT Body Mass Index 38.86 01/26/2021 12:32 PM CDT Plan of Treatment Not on file Insurance [facility] Member Subscriber Plan / Payer (Ef fective 2021-Present) Name:Lauryn Sanchez Relation to Subscriber:Self Name:Lauryn Sanchez Payer ID:[id number] (NAIC) Group ID:Not on file Type:MEDICAID RISK OTHER Address: [address] [place] [id number] [address] Care Teams Tax Processor Relationship Specialty Start Date End Date Unknown, Notinfile PCP - General 11/24/22
[2025-04-22 11:27] LABS: Vitamin B12 625.0 pg/mL (239-931)
== END 2025-04-22 09:09 | disposition home or self-care (01) ==
LOC: ANHLAB 09:19
PROVIDERS: PCP Nurse Practitioner Family; Visit Provider Nurse Practitioner Family
DX: R73.03 Prediabetes (principal); I10 Essential (primary) hypertension; Z86.79 Personal history of other diseases of the circulatory system; E53.8 Deficiency of other specified B group vitamins; Z79.01 Long term (current) use of anticoagulants; K21.9 Gastro-esophageal reflux disease without esophagitis; D64.9 Anemia, unspecified; D50.9 Iron deficiency anemia, unspecified; G25.2 Other specified forms of tremor; Z86.73 Personal history of transient ischemic attack (TIA), and cerebral infarction without residual deficits; J44.9 Chronic obstructive pulmonary disease, unspecified
CPT/HCPCS: 36415; 80053; 80061; 82607; 82746; 83036; 83540; 83550; 85025